=== PATIENT | female | born 1930 | race Caucasian/White ===

== ENCOUNTER → 2016-08-04 | Outpatient (CLI) | payer OTHER, MEDICARE | LOC: BMCIMAGING 14:30 | PROVIDERS: ATTEND Podiatrist Foot & Ankle Surgery | DX: M25.871 Other specified joint disorders, right ankle and foot (principal); M25.872 Other specified joint disorders, left ankle and foot; M21.41 Flat foot [pes planus] (acquired), right foot; M21.42 Flat foot [pes planus] (acquired), left foot; Z98.1 Arthrodesis status ==

== ENCOUNTER 2017-04-16 11:36 | Inpatient (IN) | payer OTHER, MEDICARE ==
--- NOTE | 2017-04-16 11:46 | EDPHY ---
H & P Time Seen by Provider: 04/16/17 11:41 HPI/ROS: CHIEF COMPLAINT: Cough, congestion, increasing weakness, fall HISTORY OF PRESENT ILLNESS: The patient is brought in by paramedics. She has a history of dementia and is a poor historian at baseline. By report the patient has had several days of increasing cough, congestion and sustained a mechanical fall today. She has a small abrasion to her left forearm. She did not strike her head or lose consciousness. The patient was noted to be tachycardic by paramedics. In the emergency department, the patient denies any active chest pain, shortness of breath, headache or neck pain. She has no acute complaints. REVIEW OF SYSTEMS: A comprehensive 10 point review of systems is otherwise negative aside from elements mentioned in the history of present illness. Source: Patient, Family Exam Limitations: Physical impairment - Personal History Tetanus Vaccine Date: < 10 - Medical/Surgical History Hx Asthma: No Hx Chronic Respiratory Disease: Yes Hx Diabetes: No Hx Cardiac Disease: Yes Hx Renal Disease: No Hx Cirrhosis: No Hx Alcoholism: No Hx HIV/AIDS: No Hx Splenectomy or Spleen Trauma: Yes Other PMH: HTN, DEMENTIA, CAD, ? A FIB, GERD - Social History Smoking Status: Former smoker - Physical Exam Exam: General Appearance: Elderly female, no acute distress Eyes: Pupils equal and round no pallor or injection ENT, Mouth: Dry mucous membranes Respiratory: There are no retractions, lungs are clear to auscultation Cardiovascular: Tachycardic Gastrointestinal: Abdomen is soft and nontender, no masses, bowel sounds normal Neurological: Alert and oriented x1, no gross motor deficit appreciated, no obvious cranial nerve deficits Skin: Superficial abrasion noted to left forearm Musculoskeletal: Neck is supple nontender Extremities: symmetrical, full range of motion Constitutional: Initial Vital Signs Temperature (C) 36.9 C 04/16/17 11:36 Heart Rate 146 H 04/16/17 11:36 Respiratory Rate 18 04/16/17 11:36 Blood Pressure 107/71 04/16/17 11:36 O2 Sat (%) 94 04/16/17 11:36 O2 Delivery Mode Room Air Allergies/Adverse Reactions: nitrofurantoin [From Macrobid] Allergy (Severe, Verified 11/27/15 11:03) PANIC ATTACK nitrofurantoin macrocrystalline [From Macrobid] Allergy (Severe, Verified 11:03) PANIC ATTACK pneumococcal vaccine [Pneumococcal Vaccine] Allergy (Severe, Verified 11/27/15 11:03) LOCAL REACTION, SWELLING Home Medications: Medication Instructions Recorded Aspirin EC [Aspirin EC 81 mg (*)] 81 mg PO DAILY 04/16/17 Atorvastatin Calcium [Lipitor 20 20 mg PO HS 04/16/17 mg (*)] Donepezil HCl [Aricept] 10 mg PO BID 04/16/17 Esomeprazole Mag Trihydrate 40 mg PO DAILY 04/16/17 [Nexium] Herbals/Supplements -Info Only 1 ea PO DAILY 04/16/17 Memantine HCl [Namenda 10 mg] 10 mg PO BID 04/16/17 Metoprolol Succinate Xr [Toprol Xl 50 mg PO HS 04/16/17 50 mg (*)] predniSONE 5 mg PO DAILY 04/16/17 Medical Decision Making - Diagnostics EKG Interpretation: EKG: Complete interpretation has been separately recorded in the [facility] archive. Summary impression: Atrial fibrillation, rate 142, no ST segment elevation or depression Imaging Results: Imaging Impressions Chest X-Ray 04/16/17 11:44 Impression: 1. Negative. No pneumonia or aspiration. 2. Chronic airways disease similar to November 2015. Chest/Thorax CTA 04/16/17 12:30 Impression: 1. No evidence of thrombopulmonary embolic disease. 2. Patchy right upper lobe pneumonia versus aspiration. 3. Upper lobe pneumonia versus aspiration. 4. Calcified coronary plaque. Findings discussed with Emergency Department physician, Dr. Ruben Moyer on April 16, [address] 04/16/17 12:31 Impression: 1. No acute intracranial hemorrhage, mass, or subdural hematoma. 2. No evidence of acute ischemia. Atrophy and white matter disease are unchanged. Findings discussed with Emergency Department physician, Dr. Ruben Moyer on April 16, 2017 at 1310 hours. ED Course/Re-evaluation: The patient presents to the ED with several complaints 1st is fever cough and congestion. The 2nd is syncope and weakness. The 3rd is tachycardia. The patient's EKG upon arrival demonstrates atrial fibrillation with rapid ventricular response. The patient received diltiazem bolus and was started on a diltiazem drip. The patient's initial chest x-ray demonstrated no obvious disease. Given her respiratory symptoms and tachycardia CT pulmonary angiogram was ordered which demonstrates no evidence of pulmonary embolism but does demonstrate the possibility of a right upper lobe pneumonia. The patient had blood cultures x2 obtained in the emergency department. Given her fall and underlying history of dementia a noncontrast head CT scan was obtained which demonstrates no evidence of intracranial hemorrhage or traumatic injury. The patient will require admission to the hospital in the setting of her atrial fibrillation with rapid ventricular response and possible pneumonia. Consultation was made with the hospitalist service. The patient will be admitted by Dr. Aceves. Differential Diagnosis: Differential diagnosis considered includes pneumonia, atrial fibrillation, heart failure, pulmonary embolism, intracranial hemorrhage, metabolic abnormality - Data Points Laboratory Results: Laboratory Results 04/16/17 12:00 04/16/17 12:00 04/16/17 04/16/17 12:00 12:00 WBC 8.81 10^3/uL 10^3/uL (3.80-9.50) RBC 5.39 10^6/uL H 10^6/uL (4.18-5.33) Hgb 15.6 g/dL g/dL (12.6-16.3) Hct 46.9 % % (38.0-47.0) MCV 87.0 fL fL (81.5-99.8) MCH 28.9 pg pg (27.9-34.1) MCHC 33.3 g/dL g/dL (32.4-36.7) RDW 14.0 % % (11.5-15.2) Plt Count 188 10^3/uL 10^3/uL (150-400) MPV 11.3 fL fL (8.7-11.7) Neut % (Auto) 81.1 % H % (39.3-74.2) Lymph % (Auto) 8.7 % L % (15.0-45.0) [place] % (Auto) 9.1 % % (4.5-13.0) Eos % (Auto) 0.1 % L % (0.6-7.6) Baso % (Auto) 0.3 % % (0.3-1.7) Nucleat RBC Rel Count 0.0 % % (0.0-0.2) Absolute Neuts (auto) 7.14 10^3/uL H 10^3/uL (1.70-6.50) Absolute Lymphs (auto) 0.77 10^3/uL L 10^3/uL (1.00-3.00) Absolute Monos (auto) 0.80 10^3/uL 10^3/uL (0.30-0.80) Absolute Eos (auto) 0.01 10^3/uL L 10^3/uL (0.03-0.40) Absolute Basos (auto) 0.03 10^3/uL 10^3/uL (0.02-0.10) Absolute Nucleated RBC 0.00 10^3/uL 10^3/uL (0-0.01) Immature Gran % 0.7 % % (0.0-1.1) Immature Gran # 0.06 10^3/uL 10^3/uL (0.00-0.10) Sodium 136 mEq/L mEq/L (134-144) Potassium 3.6 mEq/L mEq/L (3.5-5.2) Chloride 101 mEq/L mEq/L (97-110) Carbon Dioxide 23 mEq/l mEq/l (22-31) Anion Gap 12 mEq/L mEq/L (8-16) BUN 24 mg/dL H mg/dL (7-23) Creatinine 1.0 mg/dL mg/dL (0.6-1.0) Estimated GFR 53 Glucose 177 mg/dL H mg/dL (70-100) Calcium 11.2 mg/dL H mg/dL (8.5-10.4) Phosphorus 2.7 mg/dL mg/dL (2.5-4.5) Troponin I 0.153 ng/mL H ng/mL (0.000-0.034) NT-Pro-B Natriuret Pep 1540 pg/mL H pg/mL (0-450) Medications Given: Discontinued Medications Diltiazem HCl (Cardizem 25 Mg/5 Ml Vial) 10 mg IVP EDNOW ONE Stop: 04/16/17 12:32 Last Admin: 04/16/17 13:39 Dose: 10 mg Diltiazem HCl 125 mg/ Dextrose 125 mls @ 0 mls/hr IV EDNOW ONE; Titrate PRN Reason: Protocol Stop: 04/16/17 12:32 Last Admin: 04/16/17 13:41 Dose: 125 mls Departure - Departure Disposition: [facility] Acute Clinical Impression: Atrial fibrillation, Pneumonia, Generalized weakness Condition: Fair
--- NOTE | 2017-04-16 11:51 | CPEKG ---
Heart Rate: 142 RR Interval: 423 QRSD Interval: 104 QT Interval: 336 QTC Interval: 517 QRS [place]: -34 T Wave [place]: 104 EKG Severity - ABNORMAL ECG - EKG Impression: ATRIAL FIBRILLATION EKG Impression: LEFT AXIS DEVIATION EKG Impression: LVH WITH SECONDARY REPOLARIZATION ABNORMALITY Electronically Signed By: Ruben Moyer 16-Apr-2017 14:23:40
[2017-04-16 12:04] LABS: % IMMATURE GRANULYOCYTES 0.7 % (0.0-1.1); ABSOLUTE IMMATURE GRANULOCYTES 0.06 10^3/uL (0.00-0.10); ADD DIFF? NO; ADD MORPH? NO; ADD SCAN? NO; ATYPICAL LYMPHOCYTE FLAG 10 (0-99); FRAGMENT RBC FLAG 0 (0-99); HEMATOCRIT 46.9 % (38.0-47.0); HEMOGLOBIN 15.6 g/dL (12.6-16.3); LEFT SHIFT FLG 0 (0-99); LIPEMIA HEMOLYSIS FLAG 80 (0-99); MEAN CELL HEMOGLOBIN 28.9 pg (27.9-34.1); MEAN CELL HEMOGLOBIN CONCENTR. 33.3 g/dL (32.4-36.7); MEAN PLATELET VOLUME 11.3 fL (8.7-11.7); PLATELET CLUMPS FLAG 0 (0-99); PLATELET COUNT 188 10^3/uL (150-400); RED BLOOD CELL COUNT 5.39 10^6/uL (4.18-5.33)
[2017-04-16 12:15] LABS: ANION GAP 12 mEq/L (8-16); CALCIUM 11.2 mg/dL (8.5-10.4); CARBON DIOXIDE 23 mEq/l (22-31); CHLORIDE 101 mEq/L (97-110); GLOMERULAR FILTRATION RATE 53; GLUCOSE 177 mg/dL (70-100); POTASSIUM 3.6 mEq/L (3.5-5.2); SODIUM 136 mEq/L (134-144)
[2017-04-16 12:26] LABS: TROPONIN I 0.153 ng/mL (0.000-0.034)
[2017-04-16] MEDS ORDERED: DILTIAZEM 125 MG in D5W 125 ML IV ONE (12:31)
[2017-04-16] MEDS ORDERED: DILTIAZEM 25 MG/5 ML VIAL IVP ONE (12:31)
[2017-04-16] MEDS ORDERED: IOPAMIDOL (ISOVUE 370) 100 ML BTL IV ONE (12:35)
[2017-04-16] MEDS ORDERED: ACETAMINOPHEN 325 MG TAB PO PRN (13:52)
[2017-04-16] MEDS ORDERED: ONDANSETRON DISINTEGRATING 4 MG TAB PO PRN (13:52)
[2017-04-16] MEDS ORDERED: ONDANSETRON 4 MG/2 ML VIAL IVP PRN (13:52)
[2017-04-16] MEDS ORDERED: levOFLOXACIN 500 MG/DEXTROSE 100 ML IV ONE (13:58)
[2017-04-16] MEDS ORDERED: DILTIAZEM 125 MG in D5W 125 ML IV SCH (14:00)
[2017-04-16 14:12] LABS: CALCIUM 11.3 mg/dL (8.5-10.4)
[2017-04-16 14:24] LABS: PTH INTACT NO MINERALS 108.6 pg/ml (10.8-79.4)
[2017-04-16 15:04] LABS: INR 0.93 (0.83-1.16); PROTIME(PATIENT) 12.7 SEC (12.0-15.0)
[2017-04-16] MEDS: ENOXAPARIN 80 MG/0.8 ML SYR SC SCH ×2 (15:06→20:58)
[2017-04-16 15:14] LABS: PROCALCITONIN 0.52 ng/mL (0.02-0.10)
--- NOTE | 2017-04-16 15:32 | ECHO ---
[email or web address] [address] Main: [phone] Fax: Transthoracic Echocardiogram Name: VENESSA PHAN MR#: [id number] Study Date: 04/16/2017 Study Time: 02:18 PM Date of : 1930 Age: 87 year(s) Height: 160 cm (63 in.) Weight: 68.04 kg (150 lb.) BSA: 1.71 m2 Gender: Female Examination: Echo Indication: New onset Atrial Fibrillation Image Quality: Contrast: Requested by: Chrissy Aceves BP: 113 mmHg/78 mmHg Heart Rate: Rhythm: Atrial fibrillation Indication: New onset Atrial Fibrillation Procedure Staff Shed Hand: Nav Staton Reading Physician: Rocky Duron Requesting Provider: Conclusions: Asymmetrical basal LV hypertrophy. Normal global systolic LV function. No regional wall motion abnormality. Moderate LVOT obstruction. The LVOT gradient ranges from 57 mmHg to 67 mmHg with a VSM in the basilar outflow area in atrial fibrillation. Consider YONY to evaluate RA.. The right atrium is normal in size. Possible thrombus in right atrium. Trivial to mild tricuspid valve regurgitation. The pulmonary artery pressure is normal. There is no previous echocardiogram for comparison. Measurements: Chambers Valvular Assessment AV/MV Valvular Assessment TV/PV Normal Normal Normal Name Value Range Name Value Range Name Value Range Ao Latricia (MM): 2.6 cm (2.2 cm-3.7 AV Vmax: 2.59 m/s (1 m/s-1.7 TR Vmax: 2.73 mm/s ( - ) cm) m/s) TR PGmax: 30 mmHg ( - ) IVSd (2D): 0.9 cm (0.6 cm-1.1 AV maxP mmHg ( - ) syst. PAP: 35 mmHg ( - ) cm) LVOT Vmax: 2.16 m/s (0.7 m/s-1.1 PV Vmax: 1.53 m/s (0.6 m/s-0.9 LVDd (2D): 2.9 cm (3.9 cm-5.3 m/s) m/s) cm) AR (PHT): 532 ms ( - ) PV PGmax: 9 mmHg ( - ) LVDs (2D): 2.1 cm (2.1 cm-4 MV E Vmax: 1.06 m/s ( - ) cm) LVPWd (2D): 1.0 cm ( - ) LVEF (2D): 56 (>=54 %) Continued Measurements: Chambers Valvular Assessment AV/MV Valvular Assessment TV/PV Patient: VENESSA PHAN Study Date: 04/16/2017 Page 1 of 2 02:18 PM Name Value Name Value Name Value LADs Lon.6 cm MV E/E' Septal: 18.10 CVP (est.): 5 mmHg LA Area: 16.2 cm2 MV E/E' Lateral: 15.10 AR Vmax: 2.78 cm/s Findings: Left Ventricle: Normal size left ventricle. Asymmetrical basal LV hypertrophy. Normal global systolic LV function. EF is 56 %. No regional wall motion abnormality. Diastolic dysfunction is present. . Moderate LVOT obstruction. The LVOT gradient ranges from 57 mmHg to 67 mmHg with a VSM in the basilar outflow area in atrial fibrillation. Consider YONY to evaluate RA.. Right Ventricle: Normal size right ventricle. Normal RV function. Left Atrium: The left atrium is mildly dilated. Right Atrium: The right atrium is normal in size. Possible thrombus in right atrium. Mitral Valve: The mitral valve is normal in appearance and function. Mild mitral valve leaflet calcification is present. Trivial mitral valve regurgitation. Aortic Valve: The aortic valve is normal in appearance. Mild aortic valve regurgitation is present. Tricuspid Valve: The tricuspid valve appears normal. Trivial to mild tricuspid valve regurgitation. The pulmonary artery pressure is normal. Pulmonic Valve: The pulmonic valve is normal in appearance and function. Aorta: The aorta is normal. Pericardium: No pericardial effusion. (No Signature Object) Patient: VENESSA PHAN Study Date: 04/16/2017 Page 2 of 2 02:18 PM [id number]
--- NOTE | 2017-04-16 15:37 | GHP ---
[f rep st] HISTORY AND PHYSICAL DATE OF ADMISSION: 04/16/2017 CHIEF COMPLAINT: Fatigue, cough and intermittent somnolence. HISTORY OF PRESENT ILLNESS: The patient is an 87-year-old female with a history of dementia, hypertension and hyperlipidemia, who presents to the emergency department via EMS due to increasing weakness associated with a fall. Due to her dementia, she is a poor historian. Her son and djjiwqmz-ow-vws are here and report that she has had upper respiratory symptoms for the past 2 weeks, including a wet cough and congestion. She has been gradually becoming more weak and at times they find her slumped over in her chair. Today, she suffered a mechanical fall, resulting in a small abrasion of her left arm. There was no report of head injury or loss of consciousness. Upon arrival to the emergency department, patient was found to be in atrial fibrillation with rapid ventricular rate. She was given 10 mg of IV diltiazem, started on a diltiazem drip and was admitted to the hospital for further management. At this time, the patient denies headache, vision changes, chest pain, shortness of breath, abdominal symptoms or changes in her bowel or bladder habits. PAST MEDICAL HISTORY: 1. Hypertension. 2. Hyperlipidemia. 3. Basal cell carcinoma. 4. Migraine headaches. 5. Chronic hypercalcemia. 6. History of pulmonary embolism. 7. History of slightly elevated antithrombin 3. 8. Polymyalgia rheumatica. 9. Giant cell arteritis. 10. Chronic steroid use. PAST SURGICAL HISTORY: 1. Hysterectomy. 2. Left total knee arthroplasty. 3. Appendectomy. 4. Left breast biopsy. MEDICATIONS: Please see Let for completed outpatient medication list. ALLERGIES: Macrobid. SOCIAL HISTORY: The patient lives independently at the [facility]. She has dementia and is followed by Neurology. She has a distant tobacco history, is currently a nonsmoker. FAMILY HISTORY: Her sister of lung cancer. Mother and father both of heart disease. REVIEW OF SYSTEMS: A 10-point review of systems was performed and is negative except as per HPI. OBJECTIVE: VITAL SIGNS: Temperature is 36.9, blood pressure /76, heart rate on arrival 146, currently is 92, respiratory rate 16. She is 95% on room air. GENERAL: The patient is awake, alert and oriented to person only. She is in no acute distress. HEENT: Head is atraumatic, normocephalic. Pupils equal, round, react to light. Extraocular muscles intact. Oropharynx clear. Mucous members are moist. NECK: Supple. There is no JVD. HEART: Irregularly irregular with a 2/6 systolic ejection murmur heard loudest over the left sternal border. LUNGS: Clear to auscultation bilaterally. ABDOMEN: Soft, nondistended, nontender. Normoactive bowel sounds. EXTREMITIES: Without cyanosis, clubbing, or edema NEUROLOGIC: Grossly nonfocal. She moves all 4 extremities. There is no facial asymmetry. LABORATORY DATA: CBC reveals a white blood cell count of 8.8, hemoglobin 15.6, platelets 188. Basic metabolic panel shows normal electrolytes. BUN 24, creatinine 1.0, calcium is 11.2 which is down from 12.1 earlier this year. Troponins elevated at 0.153. NT-proBNP elevated at 1540. Intact PTH is 108.6. TSH is pending. Procalcitonin is pending. Chest x-ray on arrival to the emergency department shows mild diffuse peribronchial thickening. No evidence of pneumonia. Chronic airway disease is similar to that of old chest x-ray. CT pulmonary angiogram is negative for pulmonary embolism. There is patchy right upper lobe opacity which could be pneumonia, aspiration or sequela of respiratory viral infection. Calcified coronary plaque is also noted. Head CT is negative for an acute intracranial process. Atrophy and white matter disease are unchanged. EKG in the emergency department shows atrial fibrillation with rapid ventricular rate of 142 and evidence of LVH with repolarization abnormality. ASSESSMENT/PLAN: The patient is an 87-year-old female with recent upper respiratory symptoms, who presents to the emergency department with malaise, cough, fatigue, and a fall. She was admitted to hospital in rapid atrial fibrillation. 1. Atrial fibrillation with a rapid ventricular rate. It seems this is a new diagnosis. I discussed her case with her PCP. He has no record of prior atrial fibrillation, though the family seems to think that this has happened in the past. I will check a TSH and echocardiogram. There is no evidence of acute heart failure. She was given 10 mg of IV diltiazem and will continue an IV diltiazem drip. I will increase her oral metoprolol to 75 mg at bedtime in an effort for better rate control. She has a CHADS-VASc score of 7 which gives her a 12.5% annual stroke risk. Will start Lovenox and transition to orals prior to dc. I will make her n.p.o. at midnight in the event she does not convert and requires cardioversion. Cardiology consult is requested for the morning. 2. Elevated troponin. I suspect this is heart strain in the setting of rapid atrial fibrillation. The patient is chest pain free. Will continue to trend her troponin and repeat her EKG when her heart rate slows down. 3. Hypertension. She is actually a bit hypotensive on arrival. This may improve with rate control. We will continue diltiazem and metoprolol as above with close monitoring of her blood pressure. 4. Hyperlipidemia. Continue her statin. 5. Polymyalgia rheumatica. Continue her outpatient prednisone dose of 5 mg daily. 6. Alzheimer's dementia. Continue Aricept and Namenda. 7. Upper respiratory infection symptoms. She has no hypoxemia. She is not tachypneic. I note a possible right upper lobe opacity on her chest CT. She is afebrile with no leukocytosis. I will send a procalcitonin. If this is elevated, we will consider treatment for coverage of aspiration pneumonia. Also consider this may be viral and respiratory pathogen panel is sent. 8. Hypercalcemia. Her intact PTH is elevated suggesting primary hyperparathyroidism. It sounds like this is a chronic process and surgical intervention has not been pursued. Recommend continued outpatient followup as she is asymptomatic. 9. Deep venous thrombosis prophylaxis. Patient will be anticoagulated with Lovenox for now. 10. Disposition. The patient was admitted to observation. /[id number]/MODL MTDD
--- NOTE | 2017-04-16 16:19 | CPEKG ---
Heart Rate: 94 RR Interval: 638 P-R Interval: 136 QRSD Interval: 106 QT Interval: 376 QTC Interval: 471 P [place]: 78 QRS [place]: -43 T Wave [place]: 80 EKG Severity - ABNORMAL ECG - EKG Impression: SINUS RHYTHM EKG Impression: ATRIAL PREMATURE COMPLEX EKG Impression: LEFT VENTRICULAR HYPERTROPHY EKG Impression: ANTERIOR ST ELEVATION, PROBABLY DUE TO LVH Electronically Signed By: Linda Alfredo 17-Apr-2017 14:17:32
--- NOTE | 2017-04-16 16:24 | ASMTCASEMG ---
Living Arrangements What is your living Answers: Alone arrangement? Who do you live with? Type Of Residence What kind of residence do Answers: Skilled Nursing you live in? Case Management Evaluation Functional: ADL / IADL Answers: Deconditioning Performance Deficits Due to: Discharge Plan Comments Coordination Status Comments Notes: Patient normally lives at the [facility]. Needs TBD Date Signed: 04/16/2017 04:24 PM Electronically Signed By:Autumn Kendrick RN
--- NOTE | 2017-04-16 16:28 | ASMTCMCOM ---
CM Note CM Note Notes: Chart reviewed. Patient admitted through ED via EMS from the [facility]. Needs TBD at this time. CM to follow. Date Signed: 04/16/2017 04:28 PM Electronically Signed By:Autumn Kendrick RN
[2017-04-16] MEDS: AMPICILLIN/SULBACTAM 3 GM in NS 100 ML IV SCH (20:50)
[2017-04-16] MEDS: MEMANTINE HCL 5 MG TAB PO SCH (20:51)
[2017-04-16] MEDS: DONEPEZIL HCL 5 MG TAB PO SCH (20:51)
[2017-04-16] MEDS: OSELTAMIVIR PHOSPHATE 75 MG CAP PO SCH (20:58)
[2017-04-16] MEDS ORDERED: METOPROLOL SUCCINATE XR 50 MG TAB PO SCH (21:00)
[2017-04-16] MEDS ORDERED: NON-FORMULARY NEW DRUG (Donepezil Hcl [Aricept] 10 MG) PO SCH (21:00)
[2017-04-16] MEDS ORDERED: NON-FORMULARY NEW DRUG (Memantine Hcl [Namenda 10 Mg] 10 MG) PO SCH (21:00)
[2017-04-16] MEDS ORDERED: ATORVASTATIN CALCIUM 20 MG TAB PO SCH (21:00)
--- NOTE | 2017-04-16 22:38 | GCON ---
[f rep st] CONSULTATION CARDIOLOGY CONSULTATION CHIEF COMPLAINT: Shortness of breath, fatigue, cough. HISTORY OF PRESENT ILLNESS: This is an 87-year-old female with hypertension, hyperlipidemia who pres ents to [facility] with increasing weakness and secondary to nonsyncopal fall. The pat ient indicates that she has been having cough and shortness of breath over the last 2 weeks. Upon ar rival to admission, the patient was found to be in atrial fibrillation with RVR with slight elevation in troponins. There were no acute ST changes. The patient was started on IV Cardizem and currently has converted to normal sinus rhythm. Of note, the patient did have an echocardiogram today which s howed apparently normal ventricular function with a LVOT gradient secondary to septal hypertrophy. T he patient was also found to have questionable thrombus in the right atrial region. Currently, the p atgreg has been started on anticoagulation therapy. She indicates feeling much better in the last ho ur since she has converted to normal rhythm. Her heart rate is controlled at 92 and blood pressure i s 120/70. PAST MEDICAL HISTORY: History of hypertension, hyperlipidemia, dementia, history of pulmonary emboli sm. PAST SURGICAL HISTORY: Hysterectomy, left total knee arthroplasty. MEDICATIONS: Please see home medication list. ALLERGIES: Macrobid. SOCIAL HISTORY: Patient lives at [facility]. Currently has dementia and is followed by Neurology. FAMILY HISTORY: Noncontributory. REVIEW OF SYSTEMS: Patient denies any vision changes. No headache. No palpitations. No chest pain . No abdominal pain. No lower extremity pain. PHYSICAL EXAM: VITAL SIGNS: Afebrile 98.6. Blood pressure is currently 120/70 with a heart rate of 90, respirations 12, saturating 95% on room air. HEENT: Pupils equal, round, reactive to light and accommodation. Extraocular movements are intact. CARDIOVASCULAR: Regular rate and rhythm. S1, S2 . Soft systolic murmur heard best at the upper sternal border. LUNGS: Clear to auscultation bilate rally. ABDOMEN: Soft, nontender. No guarding. EXTREMITIES: No clubbing, no cyanosis. No edema. NEUROLOGICALLY: The patient is pleasant to question though slightly confused to person, place, and time. LABORATORY VALUES: Show a white count of 8.8, hemoglobin 15.6, platelets 188, creatinine 1.0, NT pro BNP 1540. Troponin of 0.153. ASSESSMENT/PLAN: Atrial fibrillation. At this time the patient is converted to normal sinus rhythm. We will continue rate control with IV Cardizem and switch over to p.o. Cardizem in the morning if b lood pressure can tolerate it. She has apparently a history of pulmonary embolism as well as questio nable thrombus in the right atrium. Given her significantly elevated CHADS-Vasc score and her episod e of paroxysmal atrial fibrillation, I feel continuing on oral anticoagulation would be the most prud ent therapy at this time. She could be converted to oral anticoagulation in the morning. No indicat ion for YONY at this time as even if she goes back into cardioversion she would not be a candidate for cardioversion if there is any thrombus present. Her elevated troponin level is most likely due to m yocardial demand with rapid ventricular response. Currently, she is chest pain-free and actually darcy te pleasant. Will continue to follow. Thank you for the consultation. /[id number]/MODL
[2017-04-17] MEDS: AMPICILLIN/SULBACTAM 3 GM in NS 100 ML IV SCH ×3 (01:42→12:32)
[2017-04-17 05:15] LABS: % IMMATURE GRANULYOCYTES 1.6 % (0.0-1.1); ADD DIFF? NO; ADD MORPH? NO; ADD SCAN? NO; ATYPICAL LYMPHOCYTE FLAG 50 (0-99); FRAGMENT RBC FLAG 0 (0-99); HEMATOCRIT 41.4 % (38.0-47.0); HEMOGLOBIN 13.7 g/dL (12.6-16.3); LEFT SHIFT FLG 10 (0-99); LIPEMIA HEMOLYSIS FLAG 80 (0-99); MEAN CELL HEMOGLOBIN 28.8 pg (27.9-34.1); MEAN CELL HEMOGLOBIN CONCENTR. 33.1 g/dL (32.4-36.7); MEAN CELL VOLUME 87.2 fL (81.5-99.8); MEAN PLATELET VOLUME 11.6 fL (8.7-11.7); PLATELET CLUMPS FLAG 20 (0-99); PLATELET COUNT 180 10^3/uL (150-400); RED BLOOD CELL COUNT 4.75 10^6/uL (4.18-5.33); RED CELL DISTRIBUTION WIDTH 13.9 % (11.5-15.2)
[2017-04-17 05:36] LABS: ANION GAP 12 mEq/L (8-16); CALCIUM 10.1 mg/dL (8.5-10.4); CARBON DIOXIDE 26 mEq/l (22-31); CHLORIDE 103 mEq/L (97-110); CREATININE 0.8 mg/dL (0.6-1.0); GLOMERULAR FILTRATION RATE > 60; GLUCOSE 76 mg/dL (70-100); POTASSIUM 3.5 mEq/L (3.5-5.2); SODIUM 141 mEq/L (134-144)
[2017-04-17] MEDS: OSELTAMIVIR PHOSPHATE 75 MG CAP PO SCH ×2 (08:12→11:09)
--- NOTE | 2017-04-17 08:41 | PDCARPN ---
Cardiology Progress Note Chief Complaint: palpitations Assessment/Plan: Assessment: AF with RVR ? RA thrombus Plan: 04/17/17 08:36 Pt is in NSR Bradycardic Stop cardizem, hold BB until HR improves ? Thrombus vs vegetation in RA: Given normal WBC count, afebrile state (blood cx pending) and history of PE, more likely thrombus. Continue on oral AC tx. Even if mass in RA appears to be another etiology, given her advanced age/ dementia very unlikely to be an open heart candidate. Would continue current therapy at this time. Can continue lower dose BB if HR is consistently >50 bpm. Subjective: no complaints Reviewed/Discussed With: other (RN) Time Spent With Patient: 25 min Objective: Vital Signs (8 Hrs) Temp Pulse Resp BP Pulse Ox 04/17/17 04:00 36.6 C 68 16 149/94 H 90 L Intake/Output (24 Hrs) 04/16/17 04/17/17 04/18/17 05:59 05:59 05:59 Intake Total 360 Balance 360 Intake: Oral (ml) 350 IV Infused (ml) 10 Other: Weight 68.039 kg 54.2 kg Intake Quantity Yes Sufficient Number of Voids 1 Toilet 2 Result Diagrams: 04/17/17 04:26 04/17/17 04:26 Cardiac Labs: Cardiac Lab Results (72 Hrs) 04/16/17 04/16/17 22:01 16:37 Troponin I 0.264 H 0.269 H - Physical Exam Constitutional: healthy appearing Eyes: PERRL Ears, Nose, Mouth, Throat: moist mucous membranes Peripheral Pulses: 1+: femoral (R), femoral (L) Respiratory: clear to auscultate bilat Gastrointestinal: normoactive bowel sounds Genitourinary: no suprapubic tenderness Skin: no rashes Musculoskeletal: no muscular tenderness Neurologic: CN II-XII grossly intact Psychiatric: cooperative Lymph, Heme, Immunologic: no lymphadenopathy ICD10 Worksheet Patient Problems: Problems Problem Status Onset Atrial fibrillation Acute Generalized weakness Acute Pneumonia Acute Shortness of breath Acute
[2017-04-17] MEDS: MEMANTINE HCL 5 MG TAB PO SCH (08:53)
[2017-04-17] MEDS: DONEPEZIL HCL 5 MG TAB PO SCH (08:53)
[2017-04-17] MEDS ORDERED: NON-FORMULARY NEW DRUG (Esomeprazole Mag Trihydrate [Nexium] 40 MG) PO SCH (09:00)
[2017-04-17] MEDS ORDERED: ASPIRIN EC 81 MG TAB PO SCH (09:00)
[2017-04-17] MEDS ORDERED: PANTOPRAZOLE SODIUM 40 MG TAB PO SCH (09:00)
[2017-04-17] MEDS ORDERED: APIXABAN 2.5 MG TAB PO SCH (09:00)
[2017-04-17] MEDS ORDERED: predniSONE 5 MG TAB PO SCH (09:00)
--- NOTE | 2017-04-17 09:12 | HOSPPROG ---
Hospitalist Progress Note Assessment/Plan: A fib with RVR - back in NSR, a bit bradycardic. Dilt d/c'd. Will resume lower dose BB only if HR >50's. Cont telemetry monitoring. Cont Eliquis for CVA prevention. Discussed with cards, appreciate assistance. Elevated troponin - likely strain in setting of rapid A fib, doubt ACS. Peaked at 0.2, trending down. Influenza A - pt's son, DPTAYE is refusing Tamiflu. Cont supportive care, droplet precautions. Hypertension - Controlled. Hyperlipidemia - Cont statin PMR - cont low dose Prednisone Alzheimer's dementia - stable, cont namenda, aricept Code status - Dispo - change to inpt Objective: Vital Signs Temp Pulse Resp BP Pulse Ox 37.2 C 53 L 14 145/64 H 91 L 04/17/17 08:35 04/17/17 08:35 04/17/17 08:35 04/17/17 08:35 04/17/17 08:35 Microbiology 04/16/17 14:30 Respiratory Panel (PCR) - Final Nasal, Sinus - [place] Viral Transport Influenza Virus Type A H3 Laboratory Results 04/17/17 04:26 04/17/17 04:26 04/16/17 04/17/17 04/18/17 05:59 05:59 05:59 Intake Total 360 Balance 360 PT 12.7 SEC (12.0-15.0) 04/16/17 12:00 INR 0.93 (0.83-1.16) 04/16/17 12:00 ICD10 Worksheet Patient Problems: Problems Problem Status Onset Atrial fibrillation Acute Generalized weakness Acute Pneumonia Acute Shortness of breath Acute
--- NOTE | 2017-04-17 09:48 | PDMN ---
Medical Necessity Medical necessity: C/M review: est. > 2 MN LOS for eval and TX of acute atrial fibrillation with rapid ventricular response, elevated troponin, influenza A requiring IV Diltiazem infusion now discontinued, ongoing cardiac monitoring, IV Unasyn, droplet precautions, upper respiratory symptom, acute inpt PT/OT, comorbid patient's son, DPOA refusing Tamiflu, hypertension, hyperlipidemia, Alzheimer's dementia, polymyalgia rheumatic treated with chronic oral prednisone per 04/17/2017 Hospitalist progress note.
--- NOTE | 2017-04-17 11:18 | ASMTCMCOM ---
CM Note CM Note Notes: Chart reviewed. Patient seen by hospitalist and is ready to transfer back to the [facility]. She is positive for influenza A and the son has informed the staff who will bring her meals to her room for now. CM available should other needs arise. Date Signed: 04/17/2017 11:18 AM Electronically Signed By:Autumn Kendrick RN
[2017-04-17 12:29] VITALS: BP 141/75; PULSE 56; RESP 12; TEMP 97.9; O2SAT 93
--- NOTE | 2017-04-17 14:47 | PDIAF ---
- Diagnosis Diagnosis: A fib - Medication Management Discharge Medications: Medications to Continue on Transfer Atorvastatin Calcium [Lipitor 20 mg (*)] 20 mg PO HS 04/16/17 [Last Taken ] Donepezil HCl [Aricept] 10 mg PO BID 04/16/17 [Last Taken 04/16/17] Esomeprazole Mag Trihydrate [Nexium] 40 mg PO DAILY 04/16/17 [Last Taken ] Herbals/Supplements -Info Only 1 ea PO DAILY 04/16/17 [Last Taken Unknown] Memantine HCl [Namenda 10 mg] 10 mg PO BID 04/16/17 [Last Taken 04/16/17] Metoprolol Succinate Xr [Toprol Xl 50 mg (*)] 50 mg PO HS 04/16/17 [Last Taken 04/15/17] predniSONE 5 mg PO DAILY 04/16/17 [Last Taken 04/16/17] Amoxicillin/Clavulanate Pot [Augmentin 875 MG TAB (*)] 875 mg PO BID #10 tab [Last Taken Unknown] Apixaban [Eliquis] 2.5 mg PO BID #60 tab 04/17/17 [Last Taken Unknown] Oseltamivir Phosphate [Tamiflu 75 mg (*)] 75 mg PO BIDMEAL #10 cap 04/17/17 [ Last Taken Unknown] Discharge Medications: Refer to the Discharge Home Medication list for PRN reason. - Orders Services needed: Home Care, Registered Nurse, Physical Therapy, Occupational Therapy Home Care Face to Face: I certify that this patient was under my care and that I had the required [id number] encounter meeting the encounter requirements on the discharge day. My findings support the fact that the patient is homebound as defined in Home Care Face to Face Continued: CMS Chapter 7 Medicare Benefits Manual 30.1.1 , The condition of the patient is such that there exists a normal inability to leave home and consequently, leaving home would require a considerable and taxing effort. Isolation Type: Droplet Isolation Diet Recommendation: no restrictions on diet Diet Texture: Regular Texture Diet, Thin Liquids, Meds Whole w/Liquids - Follow Up Care Current Providers and Referrals: Robert Sánchez MD [Primary Care Provider] - As per Instructions Oc Prieto MD [Medical Doctor] -
--- NOTE | 2017-04-17 14:51 | PDIAF ---
- Diagnosis Diagnosis: A fib, Influenza A Code Status: Do Not Resuscitate - Medication Management Discharge Medications: Medications to Continue on Transfer Atorvastatin Calcium [Lipitor 20 mg (*)] 20 mg PO HS 04/16/17 [Last Taken ] Donepezil HCl [Aricept] 10 mg PO BID 04/16/17 [Last Taken 04/16/17] Esomeprazole Mag Trihydrate [Nexium] 40 mg PO DAILY 04/16/17 [Last Taken ] Herbals/Supplements -Info Only 1 ea PO DAILY 04/16/17 [Last Taken Unknown] Memantine HCl [Namenda 10 mg] 10 mg PO BID 04/16/17 [Last Taken 04/16/17] Metoprolol Succinate Xr [Toprol Xl 50 mg (*)] 50 mg PO HS 04/16/17 [Last Taken 04/15/17] predniSONE 5 mg PO DAILY 04/16/17 [Last Taken 04/16/17] Amoxicillin/Clavulanate Pot [Augmentin 875 MG TAB (*)] 875 mg PO BID #10 tab [Last Taken Unknown] Apixaban [Eliquis] 2.5 mg PO BID #60 tab 04/17/17 [Last Taken Unknown] Oseltamivir Phosphate [Tamiflu 75 mg (*)] 75 mg PO BIDMEAL #10 cap 04/17/17 [ Last Taken Unknown] Discharge Medications: Refer to the Discharge Home Medication list for PRN reason. - Orders Services needed: Home Care, Registered Nurse, Physical Therapy, Occupational Therapy Home Care Face to Face: I certify that this patient was under my care and that I had the required [id number] encounter meeting the encounter requirements on the discharge day. My findings support the fact that the patient is homebound as defined in Home Care Face to Face Continued: CMS Chapter 7 Medicare Benefits Manual 30.1.1 , The condition of the patient is such that there exists a normal inability to leave home and consequently, leaving home would require a considerable and taxing effort. Isolation Type: Droplet Isolation Diet Recommendation: no restrictions on diet Diet Texture: Regular Texture Diet, Thin Liquids, Meds Whole w/Liquids - Follow Up Care Current Providers and Referrals: Robert Sánchez MD [Primary Care Provider] - As per Instructions Oc Prieto MD [Medical Doctor] -
--- NOTE | 2017-04-17 16:00 | ASMTCMCOM ---
CM Note CM Note Notes: Met with patient's son Jan. Initially he reported pharmacy won't cover eliquis. Given weekend discharge, provided him with card for eliquis 30 day free trial. He had no concerns at that time that he shared with case management. I received a test about 13:55 that the family requested home health PT eval. I asked the RN Bárbara to obtain order. Order noted and referrals began. [facility] accepted patient and were given information to Call son Jan Porter to facilitate time at [phone]. Orders sent via [employer]. Verbally accepted per Paul preparation supervisor canning coordinator for [facility]. Date Signed: 04/17/2017 03:59 PM Electronically Signed By:Autumn Kendrick RN
--- NOTE | 2017-04-17 16:05 | ASDISCHSUM ---
Discharge Information Plan Status:Home with Home Health Medically Cleared to Leave:04/16/2017 Discharge Date:04/17/2017 03:15 PM D/C Disposition:Home Health Service [facility] D/C Disposition:Home, Routine, Self-Care Projected Discharge Date:04/17/2017 11:00 AM Transportation at D/C:Family Discharge Delay Reason: Follow-Up Date:04/17/2017 11:00 AM Discharge Slot: Final Diagnosis: Placement Information Referral Type:*Home Health Care Services Referral ID:[id number] Provider Name:[facility] Address 1:[address] [address] Address 2: City:[place] Selection Factors: State:[place] Patient Contact Information Contact Name:KEVIN Relationship:Son Address: City:[place] Alternate Phone: State/Zip Code:[place] Email: Financial Information Financial Class: Primary Plan Desc:MEDICARE OUTPATIENT Primary Plan Number:[id number] Secondary Plan Desc:AARP/MDR SUPPLEMENT Secondary Plan Number:[id number] Assessment Information [facility] Initial CM Assessment Living Arrangements What is your living Answers: Alone arrangement? Who do you live with? Type Of Residence What kind of residence do Answers: Snf you live in? Case Management Evaluation Functional: ADL / IADL Answers: Deconditioning Performance Deficits Due to: Discharge Plan Comments Coordination Status Comments Notes: Patient normally lives at the [facility]. Needs TBD Date Signed: 04/16/2017 04:24 PM Electronically Signed By:Autumn Kendrick RN [facility] CM Progress Note CM Note CM Note Notes: Chart reviewed. Patient admitted through ED via EMS from the [facility]. Needs TBD at this time. CM to follow. Date Signed: 04/16/2017 04:28 PM Electronically Signed By:Autumn Kendrick RN [facility] CM Progress Note CM Note CM Note Notes: Chart reviewed. Patient seen by hospitalist and is ready to transfer back to the [facility]. She is positive for influenza A and the son has informed the staff who will bring her meals to her room for now. CM available should other needs arise. Date Signed: 04/17/2017 11:18 AM Electronically Signed By:Autumn Kendrick RN [facility] CM Progress Note CM Note CM Note Notes: Met with patient's son Jan. Initially he reported pharmacy won't cover eliquis. Given weekend discharge, provided him with card for eliquis 30 day free trial. He had no concerns at that time that he shared with case management. I received a test about 13:55 that the family requested home health PT eval. I asked the RN Bárbara to obtain order. Order noted and referrals began. [facility] accepted patient and were given information to Call son Jan Porter to facilitate time at [phone]. Orders sent via [email or web address]. Verbally accepted per Paul button decorating machine operator coordinator for [facility]. Date Signed: 04/17/2017 03:59 PM Electronically Signed By:Autumn Kendrick RN Intervention Information Intervention Type:*Occurence 72 Date of Service:04/16/2017 12:56 PM Patient Type:Inpatient Staff Member:CAROLINA Barnes, Social Circle Hours:0.25 Discipline: Severity:1 (0-1 Hours) Comment: Occ 72 for 04/16/2017 12:56 to 2016 09:34 as patient discharged 04/17/2017 09:3 8 9< 2 MN LOS after patient admission order changed from observation to inpatient).
[2017-04-17] MEDS ORDERED: METOPROLOL TARTRATE 50 MG TAB PO SCH (21:00)
--- NOTE | 2017-04-18 13:55 | GDS ---
[f rep st] DISCHARGE SUMMARY DISCHARGE DIAGNOSES: 1. Atrial fibrillation with rapid ventricular response. 2. Influenza A. 3. Elevated troponin likely secondary to demand ischemia in the setting of atrial fibrillation. 4. Hypertension. 5. Hyperlipidemia. 6. Alzheimer's dementia. 7. Polymyalgia rheumatica. CONSULTANTS: HISTORY OF DETAILS: Please see the history and physical dated April 16, 2017. In brief, the david ent is an 87-year-old female with a history of hypertension, hyperlipidemia, and dementia who present ed to the emergency department via EMS with weakness and a subsequent fall. She was found to be in r apid atrial fibrillation and was admitted to the hospital for further management. HOSPITAL COURSE: The patient was admitted to the progressive care unit. She was treated with IV dil tiazem for her rapid AFib and her metoprolol dose was increased from 50-75 mg the evening of admissio n. She converted back to sinus rhythm and was briefly a bit bradycardic in the 40s, though her heart rate has improved today in the 50s to 60s. She has converted back to sinus rhythm spontaneously. E chocardiogram was performed and shows a likely right atrial thrombus. She was started on Eliquis for anticoagulation. I discussed the stroke risk versus the bleeding risk with her son who is power of patent attorney and he wishes to proceed with anticoagulation, acknowledging her risk of bleeding. Cardizem was stopped and she is continued on her usual dose of metoprolol. Her history leading up to this ent was remarkable for upper respiratory symptoms with cough, congestion, weakness and fevers. A res piratory pathogen panel was performed and was positive for influenza A. Tamiflu was ordered, althoug h her son who is power of patent attorney initially refused this. It sounds like he is agreeable at the rosy e of discharge, and we discussed it may decrease viral shedding, which may be important given her sta [facility]us at the [facility] with other frail residents. The patient felt well and was evaluated by Physical T herapy and Occupational Therapy on the day of discharge. They both felt that she was back to her [facility] and deemed safe for discharge home to the [facility] with home health services. She had a CT pulmonary angiogram that was negative for PE, though somewhat concerning for a patchy ri ght upper lobe pneumonia, possibly due to aspiration. She had an elevated procalcitonin and was init ially treated with Unasyn. She remained afebrile. This was transitioned to Augmentin and she will c omplete a 1-week course of antibiotic therapy for possible aspiration pneumonia. She was evaluated b y speech therapy and was deemed safe for a regular diet with thin liquids and home medications. DISPOSITION: The patient is discharged home with home health, PT, OT and RN. We also discussed incr easing private caregivers for additional support with the son. He is given resources by our Case Man joaquin. FOLLOWUP: 1. Dr. Robert Sánchez, primary care. 2. . , cardiology. DISCHARGE MEDICATIONS: Please see [employer] for complete updated outpatient medication list. New med ications on discharge include Augmentin 875 mg p.o. b.i.d #10 no refills, Eliquis 2.5 mg p.o. ___ #60 no refills, Tamiflu 75 mg p.o. b.i.d. #10 no refills, aspirin is discontinued in favor of ant icoagulation with Eliquis. She will continue all of her outpatient medications as previously prescri bed. /[id number]/MODL
== END 2017-04-17 15:15 | disposition home health service (06) | DRG 308 ==
LOC: EDUNIT# → INTOOBSV 12:45 → F2W 15:44 → OBSVTOIN 04-17 09:34 → INTOOBSV 04-17 09:34
PROVIDERS: ADMIT Hospitalist; ATTEND Hospitalist
DX: I48.91 Unspecified atrial fibrillation (principal); J10.1 Influenza due to other identified influenza virus with other respiratory manifestations; J69.0 Pneumonitis due to inhalation of food and vomit; G30.9 Alzheimer's disease, unspecified; F02.80 Dementia in other diseases classified elsewhere, unspecified severity, without behavioral disturbance, psychotic disturbance, mood disturbance, and anxiety; M31.5 Giant cell arteritis with polymyalgia rheumatica; Z79.52 Long term (current) use of systemic steroids; Z96.652 Presence of left artificial knee joint; Z87.891 Personal history of nicotine dependence; I10 Essential (primary) hypertension; I25.10 Atherosclerotic heart disease of native coronary artery without angina pectoris; K21.9 Gastro-esophageal reflux disease without esophagitis
CPT/HCPCS: 92610-GN; 97161-GP; 97165-GO; G0378; G8978-GP-CI; G8979-GP-CI; G8980-GP-CI; G8987-GO-CI; G8988-GO-CI; G8989-GO-CI; G8996-GN-CH; G8997-GN-CH; G8998-GN-CH; J0295; J1650; J1956; Q9967

== ENCOUNTER 2017-06-04 18:15 | Observation (INO) | payer OTHER, MEDICARE ==
[2017-06-04] MEDS ORDERED: NS 500 ML IV ONE (18:19)
--- NOTE | 2017-06-04 18:23 | EDPHY ---
H & P HPI/ROS: CHIEF COMPLAINT: Found sitting on floor, chills, vomiting Limitations: dementia HISTORY OF PRESENT ILLNESS: The patient is an anticoagulated 86 y/o female arriving via EMS after she was found sitting on the floor vomiting and complaining of chills. Medical history includes dementia, hypertension, and atrial fibrillation for which she takes Xarelto. She lives at a memory care unit and was last seen normal by staff today around 14:00, about 4 hours ago. When EMS assessed her on scene, she told them she was sitting on the floor "I like it because it's flat." The fire department measured one low SpO2 reading in the 80% range on scene and EMS noted there was an O2 concentrator in the apartment that did not appear to be in use. She had a normal SpO2 on 4lpm O2 during transport. She vomited once en route here and continues to complain of chills and nausea. She denies chest pain, dyspnea, abdominal pain, extremity pain. History limited by patient's dementia. Caregiver arrives at bedside and says patient has been pale, diaphoretic, and shivering today, but was normal yesterday. Her caregiver found her on the floor next to bathroom and suspected she may have fallen. Per caregiver, pt is normally quite talkative and is much less ineractive than usual. The patient doesn't have a caregiver for a few hours in the afternoon and it's possible she was on the floor for more than 3 hours. REVIEW OF SYSTEMS: Constitutional: see HPI Eyes: No visual changes ENT: No sore throat Respiratory: No cough, no shortness of breath Cardiac: No chest pain Gastrointestinal: see HPI Genitourinary: no dysuria Musculoskeletal: No extremity pain Skin: No rash Neurological: No headache Psychiatric: No depression - Personal History Tetanus Vaccine Date: < 10 - Medical/Surgical History PMH: PMH includes: 1. Hypertension 2. Hyperlipidemia 3. GERD 4. Osteoporosis 5. Dementia 6. Atrial fibrillation - Xarelto 7. Home O2 at night 8. Basal cell carcinoma 9. Migraines 10. History of PE and slightly elevated antithrombin 3 11. Polymyalgia rheumatica 12. Chronic steroid use PSH includes: 1. Hysterectomy 2. Left total knee arthroplasty 3. Appendectomy 4. Left breast biopsy Prior medical records reviewed including admission 04/17/17 for cough and somnolence. Hx Asthma: No Hx Chronic Respiratory Disease: Yes Hx Diabetes: No Hx Cardiac Disease: Yes Hx Renal Disease: No Hx Cirrhosis: No Hx Alcoholism: No Hx HIV/AIDS: No Hx Splenectomy or Spleen Trauma: Yes Other PMH: HTN, DEMENTIA, CAD, GERD - Social History Smoking Status: Former smoker Additional Social History: Lives in memory care at the [facility]. Caregiver at bedside. PCP: Dr. Sánchez. Commercial Assistant: Dr. Brown - Physical Exam Exam: General Appearance: Alert, answers questions appropriately, poor short term memory Head: Atraumatic. No scalp swelling or tenderness Eyes: Pupils equal and round, no conjunctival pallor or injection ENT, Mouth: Mucous membranes moist Neck: Normal inspection, no midline tenderness Respiratory: no chest wall tenderness, lungs are clear to auscultation Cardiovascular: Regular rate and rhythm Gastrointestinal: Abdomen is soft and non-tender Neurological: Alert, oriented to person, follows commands, CARRILLO, gait deferred Skin: Warm and dry, no abrasions or lacerations Extremities: Nontender, no swelling Psychiatric: flat affect Constitutional: Initial Vital Signs Temperature (C) 37.3 C 06/04/17 18:15 Heart Rate 78 06/04/17 18:15 Respiratory Rate 17 06/04/17 18:15 Blood Pressure 196/89 H 06/04/17 18:15 O2 Sat (%) 97 06/04/17 18:15 O2 Delivery Mode Room Air Allergies/Adverse Reactions: nitrofurantoin [From Macrobid] Allergy (Severe, Verified 06/04/17 18:25) PANIC ATTACK nitrofurantoin macrocrystalline [From Macrobid] Allergy (Severe, Verified 18:25) PANIC ATTACK pneumococcal vaccine [Pneumococcal Vaccine] Allergy (Severe, Verified 06/04/17 18:25) LOCAL REACTION, SWELLING Home Medications: Medication Instructions Recorded Atorvastatin Calcium [Lipitor 20 20 mg PO HS 04/16/17 mg (*)] Donepezil HCl [Aricept] 10 mg PO BID 04/16/17 Esomeprazole Mag Trihydrate 40 mg PO DAILY 04/16/17 [Nexium] Herbals/Supplements -Info Only 1 ea PO DAILY 04/16/17 Memantine HCl [Namenda 10 mg] 10 mg PO BID 04/16/17 Metoprolol Succinate Xr [Toprol Xl 50 mg PO HS 04/16/17 50 mg (*)] Rivaroxaban [Xarelto 10mg (*)] 10 mg PO DAILY 06/04/17 Acetaminophen [Tylenol 325mg (*)] 650 mg PO Q6 PRN tab 06/05/17 Medical Decision Making - Diagnostics Imaging Results: Chest X-Ray 06/04/17 18:20 Impression: Negative chest. Imaging: I viewed and interpreted images myself ED Course/Re-evaluation: This is an anticoagulated 87 y/o female with dementia who presents with chills and vomiting after she was found down on the floor of her apartment. Neuro exam is nonfocal. No visible trauma on exam; no clinical suspicion of ICH/other traumatic injury. Plan for IV, labs, UA, flu swab, EKG, chest x-ray. 500mL IV NS ordered. IVF given, pt too weak to ambulate, no evidence of pneumonia, influenza swab and UA pending. Viral AGE vs other infection, will require admission b/c of weakness and advance age. Consulted with hospitalist service. Dr. So accepts admission. Differential Diagnosis: includes though not limited gastroenteritis, UTI, pneumonia, dehydration, electrolyte abnormality - Data Points Laboratory Results: Laboratory Results 06/04/17 18:30 06/04/17 18:20 Medications Given: Discontinued Medications Atorvastatin Calcium (Lipitor) 20 mg PO HS [facility] Stop: 12/01/17 20:59 Last Admin: 06/04/17 21:50 Dose: 20 mg Donepezil HCl (Aricept) 10 mg PO BID [facility] Stop: 12/01/17 20:59 Last Admin: 06/05/17 09:53 Dose: 10 mg Sodium Chloride (Ns) 500 mls @ 0 mls/hr IV EDNOW ONE; Wide Open PRN Reason: Protocol Stop: 06/04/17 18:20 Last Admin: 06/04/17 18:37 Dose: 500 mls Sodium Chloride (Ns) 1,000 mls @ 125 mls/hr IV CONT [facility] Stop: 12/01/17 20:29 Last Admin: 06/04/17 21:49 Dose: 1,000 mls Memantine (Namenda) 10 mg PO BID [facility] Stop: 12/01/17 20:59 Last Admin: 06/05/17 09:54 Dose: 10 mg Metoprolol Succinate (Toprol Xl) 50 mg PO HS [facility] Stop: 12/01/17 20:59 Last Admin: 06/04/17 21:49 Dose: 50 mg Pantoprazole Sodium (Protonix) 40 mg PO DAILY [facility] Stop: 12/02/17 08:59 Last Admin: 06/05/17 09:53 Dose: 40 mg Rivaroxaban (Xarelto) 10 mg PO DAILY [facility] Stop: 12/02/17 08:59 Last Admin: 06/05/17 09:53 Dose: 10 mg Departure - Departure Disposition: [facility] Inpatient Acute Clinical Impression: Dehydration Dementia Qualifiers: Dementia type: unspecified type Dementia behavioral disturbance: without behavioral disturbance Qualified Code(s): F03.90 - Unspecified dementia without behavioral disturbance Vomiting Qualifiers: Vomiting type: unspecified Vomiting Intractability: non-intractable Nausea presence: with nausea Qualified Code(s): R11.2 - Nausea with vomiting, unspecified Condition: Fair Report Scribed for: Gracia Spaulding Report Scribed by: Chuyita Gaston Date of Report: 06/04/17 Time of Report: 18:23 Physician Review and Approval Statement: 06/04/17 18:23 Portions of this note were transcribed by a medical technologist blood bank. I personally performed a history, physical exam, medical decision making, and confirmed accuracy of information the transcribed note.
--- NOTE | 2017-06-04 18:38 | CPEKG ---
Heart Rate: 76 RR Interval: 789 P-R Interval: 144 QRSD Interval: 106 QT Interval: 424 QTC Interval: 477 P Dunlevy: 39 QRS Dunlevy: -31 T Wave Dunlevy: 75 EKG Severity - ABNORMAL ECG - EKG Impression: SINUS RHYTHM EKG Impression: LEFT VENTRICULAR HYPERTROPHY Electronically Signed By: Gracia Spaulding 04-Jun-2017 21:42:11
[2017-06-04 18:47] LABS: PLATELET COUNT 240 10^3/uL (150-400)
[2017-06-04] MEDS ORDERED: PROMETHAZINE HCL 25 MG/ML INJ IVP PRN (20:20)
[2017-06-04] MEDS ORDERED: ACETAMINOPHEN 325 MG TAB PO PRN (20:20)
[2017-06-04] MEDS ORDERED: NS 1,000 ML IV SCH (20:30)
--- NOTE | 2017-06-04 20:52 | GHP ---
[f rep st] HISTORY AND PHYSICAL DATE OF ADMISSION: 06/04/2017 CHIEF COMPLAINT: Found down with nausea and vomiting. HISTORY OF PRESENT ILLNESS: This is an 87-year-old female with history of advanced dementia who live s at the [facility] with home care. She was found this evening on the floor vomiting. She was reported to be in her normal state of health this morning. She has a home care worker who leaves at 2 and an other who arrives at 5. Between the hours of 2-5, her symptoms must have started. In the emergency department, she continues to have bouts of nausea and vomiting. During the time of my exam, she melchor es any abdominal pain. She is a poor historian, given her dementia. PAST MEDICAL HISTORY: 1. Hypertension. 2. Hyperlipidemia. 3. Basal cell carcinoma. 4. Migraine headaches. 5. Chronic hypercalcemia. 6. History of pulmonary embolism. 7. Polymyalgia rheumatica. 8. Giant cell arteritis. 9. Chronic steroid use. 10. Hospitalization in April of 2017 for influenza A. 11. Hearing loss. PAST SURGICAL HISTORY: Hysterectomy, left total knee arthroplasty, appendectomy left breast biopsy. HOME MEDICATIONS: Reviewed. Refer to [employer] for details. ALLERGIES: Macrobid, pneumococcal vaccine. SOCIAL HISTORY: The patient is a former smoker. No history of illicit drug use. She lives at the [facility] with home care. FAMILY HISTORY: Unobtainable. REVIEW OF SYSTEMS: Comprehensive 10-point review of systems was attempted. However, it was unreliab le, given the patient's dementia as well as profound hearing loss. PHYSICAL EXAM: VITAL SIGNS: Blood pressure 196/89, pulse 78, respiratory rate 17, O2 saturation 97% on room air. Temperature afebrile. GENERAL: No acute distress. HEENT: HEAD: Normocephalic, atr aumatic. EYES: PERRLA. Sclerae anicteric. MOUTH: Moist mucous membranes. NECK: Supple. No lym phadenopathy. CARDIOVASCULAR: S1-S2. No JVD. No lower extremity edema. PULMONARY: Lungs are med ar. No wheezes, rales, or rhonchi. ABDOMEN: Soft, nontender, nondistended. No guarding or rebound tenderness. Normoactive bowel sounds. EXTREMITIES: No clubbing or cyanosis. NEURO: Cranial nerv es 2-12 grossly intact. No focal motor or sensory deficits. SKIN: Clear. No rashes. DIAGNOSTICS: WBC is 12.7, hemoglobin 14.8, hematocrit 44.8, platelets 240. Sodium 142, potassium 4. 4, chloride 102, BUN 19, creatinine 0.8, glucose 122, calcium was 11.5. Troponin was unremarkable. P TH done in April 2017 was elevated at 108.6. Serum protein electrophoresis done July 2016 was ne gative for monoclonal spike. PTH-related peptide done in [address] angio of the chest done in April 2017 was negative For malignancy. Chest x-ray done today was reviewed and visualized and it is negative for pneumonia. EKG which I visualized and personally interpreted shows sinus rhythm, rate 76 beats per minute, wit h voltage criteria for LVH. ASSESSMENT AND PLAN: This is an 87-year-old female with multiple medical problems. Presents to the hospital with: 1. Nausea, vomiting. Unclear etiology. Most likely due to acute gastroenteritis. Other etiologies include, but are less likely, appendicitis versus vomiting from her hypercalcemia versus head bleed. Plan: Currently, the patient appears to be doing better. She will be placed on observation where w e will treat her supportively with intravenous fluids and antiemetics. Given that she was found on t he floor and appears to be on Xarelto, will order a head CT to confirm there are no signs of intracra nial hemorrhage. 2. Vssvr-[id number] hypercalcemia. Most likely related to primary hyperparathyroidism and exacerbat ed by hypovolemia in the setting of nausea and vomiting. Plan: Will start intravenous fluids and re peat ionized calcium in the morning. I will defer further workup at this time. It may be reasonable to repeat a PTH-related peptide. 3. History of hypertension with signs of left ventricular hypertrophy on electrocardiogram. Plan: M onitor blood pressure and treat accordingly. 4. History of pulmonary embolism and elevated antithrombin 3 level. Plan: Once again, it appears t hat the patient is anticoagulated, which will be continued as long as there are no contraindications. 5. History of polymyalgia rheumatica/giant cell arteritis. On chronic prednisone. PLAN: Will continue home dose of steroids and consider stress-dose steroids if her nausea and vomiti ng continues or if she has any electrolyte abnormalities in the morning such as hyperkalemia. We brayan l start stress dose steroids. Sooner if she develops any hypotension. CODE STATUS: Was unable to confirm the patient's code status, but will enter of her code status as f ull for now. This will need to be confirmed with her family when available. /[id number]/MODL
[2017-06-04] MEDS ORDERED: NON-FORMULARY NEW DRUG (Donepezil Hcl [Aricept] 10 MG) PO SCH (21:00)
[2017-06-04] MEDS ORDERED: NON-FORMULARY NEW DRUG (Memantine Hcl [Namenda 10 Mg] 10 MG) PO SCH (21:00)
[2017-06-04] MEDS ORDERED: METOPROLOL SUCCINATE XR 50 MG TAB PO SCH (21:00)
[2017-06-04] MEDS ORDERED: ATORVASTATIN CALCIUM 20 MG TAB PO SCH (21:00)
[2017-06-04] MEDS: MEMANTINE HCL 5 MG TAB PO SCH (21:49)
[2017-06-04] MEDS: DONEPEZIL HCL 5 MG TAB PO SCH (21:49)
[2017-06-05 04:51] LABS: PLATELET COUNT 237 10^3/uL (150-400)
[2017-06-05 07:44] VITALS: RESP 15; TEMP 99.1; O2SAT 98
[2017-06-05] MEDS ORDERED: PANTOPRAZOLE SODIUM 40 MG TAB PO SCH (09:00)
[2017-06-05] MEDS ORDERED: RIVAROXABAN 10 MG TAB PO SCH (09:00)
[2017-06-05] MEDS ORDERED: Herbals/Supplements -Info Only PO SCH (09:00)
[2017-06-05] MEDS ORDERED: NON-FORMULARY NEW DRUG (Esomeprazole Mag Trihydrate [Nexium] 40 MG) PO SCH (09:00)
[2017-06-05] MEDS: DONEPEZIL HCL 5 MG TAB PO SCH (09:53)
[2017-06-05] MEDS: MEMANTINE HCL 5 MG TAB PO SCH (09:54)
--- NOTE | 2017-06-05 10:25 | ASMTCMCOM ---
CM Note CM Note Notes: Spoke w/TRAVELING STOREKEEPER, pt lives at the [facility] she has dementia. She will return home w/support of family and caregivers, CM available for any changes. DC Plan: Home with current support Date Signed: 06/05/2017 10:25 AM Electronically Signed By:Kaylee Segovia RN
--- NOTE | 2017-06-05 10:31 | ASMTLACE ---
LACE Length of stay for Answers: Less than 1 day current admission Acuity / Level of Answers: No Care: Did the patient have an inpatient admission? Comorbidities - select Answers: Dementia all that apply Other Score: 4 Date Signed: 06/05/2017 10:30 AM Electronically Signed By:Kaylee Segovia RN
[2017-06-05 10:50] VITALS: BP 113/59; PULSE 60
--- NOTE | 2017-06-05 14:13 | ASDISCHSUM ---
Discharge Information Plan Status:Home with No Needs Medically Cleared to Leave: Discharge Date:06/05/2017 12:06 PM CM D/C Disposition:Home, Routine, Self-Care ADT D/C Disposition:Home, Routine, Self-Care Projected Discharge Date:06/05/2017 12:06 PM Transportation at D/C:Family Discharge Delay Reason: Follow-Up Date:06/05/2017 12:06 PM Discharge Slot: Final Diagnosis: Placement Information Patient Contact Information Contact Name:KEVIN Relationship:Bonifacio Address: City:[place] Alternate Phone: State/Zip Code:[place] Email: Financial Information Financial Class: Primary Plan Desc:MEDICARE OUTPATIENT Primary Plan Number:[id number] Secondary Plan Desc:AARP/MDR SUPPLEMENT Secondary Plan Number:[id number] Assessment Information [facility] CM Progress Note CM Note CM Note Notes: Spoke w/SAMPLE SEWER, pt lives at [email or web address], she has dementia. She will return home w/support of family and caregivers, CM available for any changes. DC Plan: Home with current support Date Signed: 06/05/2017 10:25 AM Electronically Signed By:Kaylee Segovia RN LACE LACE Length of stay for Answers: Less than 1 day current admission Acuity / Level of Answers: No Care: Did the patient have an inpatient admission? Comorbidities - select Answers: Dementia all that apply Other Score: 4 Date Signed: 06/05/2017 10:30 AM Electronically Signed By:Kaylee Segovia RN Intervention Information
--- NOTE | 2017-06-05 20:30 | GDS ---
[f rep st] DISCHARGE SUMMARY DISCHARGE DIAGNOSES: 1. Nausea and vomiting. 2. Imhvl-nt-jhtayvd hypercalcemia. 3. History of pulmonary emboli. 4. Hypertension. PHYSICAL EXAM: GENERAL: The patient is alert. VITAL SIGNS: Afebrile at 37.3, pulse is 64, respira tory rate 15, blood pressure is 152/77. She is saturating greater than 90%. I have seen and evaluated the patient on the day of discharge. HOSPITAL COURSE: Ms Porter is an 87-year-old female who presented to the emergency room after having nausea and vomiting. She has been evaluated and diagnosed with: 1. Nausea and vomiting. Most likely secondary to an acute gastroenteritis. The patient's symptoms have completely resolved. She is tolerating a regular diet. She has had no complications secondary to this condition and she has returned to her baseline. 2. Mlrzg-ej-gwkrxkl hypercalcemia. This is likely exacerbated in the setting of hyperparathyroidism , as well as hypovolemia. Calcium is 10.2 today prior to disposition. 3. History of hypertension. She did have mild hypertension during this hospitalization. However, s he was unable to take some of her antihypertensive medications prior to arriving. These medications have been continued during this hospital course and her blood pressure appears to be within normal li mits. 4. History of pulmonary emboli. She is anticoagulated and will continue this at the time of disposi tion. 5. History of polymyalgia rheumatica. She will continue on her chronic prednisone. DISPOSITION: The patient will be discharged to return to her normal living environment at the [facility]. PENDING STUDIES: There are none. DISCHARGE MEDICATIONS: Please refer to EMR form. I have not adjusted the patient's previously pres ribed home medications to the best of my knowledge. FOLLOWUP: She will follow up with her primary care physician, Dr. Robert Sánchez, as needed. I reviewed the patient's disposition with her son. He is in agreement with this plan and will provid e transportation for the patient home. /[id number]/MODL
== END 2017-06-05 12:06 | disposition home or self-care (01) ==
LOC: EDUNIT# → F3E 20:25
PROVIDERS: ADMIT Family Medicine; ATTEND Family Medicine
DX: R11.2 Nausea with vomiting, unspecified (principal); E83.52 Hypercalcemia; I10 Essential (primary) hypertension; F03.90 Unspecified dementia, unspecified severity, without behavioral disturbance, psychotic disturbance, mood disturbance, and anxiety; E78.5 Hyperlipidemia, unspecified; Z86.711 Personal history of pulmonary embolism; Z85.828 Personal history of other malignant neoplasm of skin
CPT/HCPCS: 70450; 71046; 93005; G0378

== ENCOUNTER → 2017-11-25 | Outpatient (CLI) | payer OTHER, MEDICARE | LOC: BHFA 16:15 | PROVIDERS: ATTEND Internal Medicine Cardiovascular Disease | DX: I08.3 Combined rheumatic disorders of mitral, aortic and tricuspid valves (principal); I48.91 Unspecified atrial fibrillation ==

== ENCOUNTER 2018-04-26 12:07 | Observation (INO) | payer OTHER, MEDICARE ==
--- NOTE | 2018-04-26 12:23 | EDPHY ---
H & P Time Seen by Provider: 04/26/18 12:09 HPI/ROS: Chief Complaint: Syncope HPI: 88-year-old woman had 3 syncopal episodes this morning. First episode occurred with her son. Patient stood up collapsed in front of him. He is able to catch her to lower her to the ground. She had a 2nd syncopal episode while seated. EMS was called. Drain transferred in patient had a 3rd syncopal episode. EMS reports her heart rate dropped to the 40s at that time. Patient has a history dementia and does not recall the events. Denies any fevers or chills. Son is at the bedside. She did not hit her head. She is on Xarelto for a history of atrial fibrillation. History of hypertension, hypercalcemia in the past. No recent illness that he is aware of. She does live in assisted living. Currently she is without complaint. ROS: 10 systems were reviewed and were negative except those elements noted in the HPI. PMH: Dementia, Atrial fibrillation, PE, hypertension, hypercalcemia, hyperlipidemia, basal cell carcinoma, polymyalgia rheumatica, giant cell arteritis Social History: No smoking, no alcohol, no recreational drug use Family History: non-contributory Physical Exam: Gen: Awake, Alert, No Distress HEENT: Nose: no rhinorrhea Eyes: PERRLA, EOMI Mouth: Moist mucosa Neck: Supple, no JVD Chest: nontender, lungs clear to auscultation Heart: S1, S2 normal, 3 in 6 systolic murmur heard loudest at the left sternal border Abd: Soft, non-tender, no guarding Back: no CVA tenderness, no midline tenderness Ext: no edema, non-tender Skin: no rash Neuro: CN II-XII intact, Sensation grossly intact, Strength 5/5 in bilateral upper and lower extremities - Personal History Tetanus Vaccine Date: < 10 - Medical/Surgical History Hx Asthma: No Hx Chronic Respiratory Disease: Yes Hx Diabetes: No Hx Cardiac Disease: Yes Hx Renal Disease: No Hx Cirrhosis: No Hx Alcoholism: No Hx HIV/AIDS: No Hx Splenectomy or Spleen Trauma: Yes Other PMH: HTN, DEMENTIA, CAD, GERD - Social History Smoking Status: Former smoker Constitutional: Initial Vital Signs Temperature (C) 36.3 C 04/26/18 12:19 Heart Rate 70 04/26/18 12:19 Respiratory Rate 18 04/26/18 12:19 Blood Pressure 160/82 H 04/26/18 12:19 O2 Sat (%) 97 04/26/18 12:19 O2 Delivery Mode Room Air O2 (L/minute) 3 Allergies/Adverse Reactions: nitrofurantoin [From Macrobid] Allergy (Severe, Verified 06/04/17 18:25) PANIC ATTACK nitrofurantoin macrocrystalline [From Macrobid] Allergy (Severe, Verified 18:25) PANIC ATTACK pneumococcal vaccine [Pneumococcal Vaccine] Allergy (Severe, Verified 06/04/17 18:25) LOCAL REACTION, SWELLING Home Medications: Medication Instructions Recorded Atorvastatin Calcium [Lipitor 20 20 mg PO HS 04/16/17 mg (*)] Donepezil HCl [Aricept] 10 mg PO BID 04/16/17 Esomeprazole Mag Trihydrate 40 mg PO DAILY 04/16/17 [Nexium] Herbals/Supplements -Info Only 1 ea PO DAILY 04/16/17 Memantine HCl [Namenda 10 mg] 10 mg PO BID 04/16/17 Metoprolol Succinate Xr [Toprol Xl 50 mg PO HS 04/16/17 50 mg (*)] Rivaroxaban [Xarelto 10mg (*)] 10 mg PO DAILY 06/04/17 Acetaminophen [Tylenol 325mg (*)] 650 mg PO Q6 PRN tab 06/05/17 Medical Decision Making - Diagnostics EKG Interpretation: ECG time 12:14 p.m.. Sinus rhythm with a rate of 73, morphology consistent with LVH, no acute ST or T-wave changes. ED Course/Re-evaluation: 88-year-old woman with 3 syncopal events this morning. She does have a murmur consistent with a stenosis. I have not been able to get access to her prior echocardiogram results. Has a white count but no focal source of infection. Urinalysis and chest x-ray are unremarkable. She is currently without complaint. Case discussed with Dr. Jesus Coronado, hospitalist. He will admit to the PCU for further evaluation. - Data Points Laboratory Results: Laboratory Results 04/26/18 12:45 04/26/18 12:45 04/26/18 04/26/18 04/26/18 12:55 12:45 12:45 WBC 15.77 10^3/uL H 10^3/uL (3.80-9.50) RBC 4.52 10^6/uL 10^6/uL (4.18-5.33) Hgb 12.6 g/dL g/dL (12.6-16.3) Hct 40.4 % % (38.0-47.0) MCV 89.4 fL fL (81.5-99.8) MCH 27.9 pg pg (27.9-34.1) MCHC 31.2 g/dL L g/dL (32.4-36.7) RDW 13.9 % % (11.5-15.2) Plt Count 286 10^3/uL 10^3/uL (150-400) MPV 10.4 fL fL (8.7-11.7) Neut % (Auto) 87.1 % H % (39.3-74.2) Lymph % (Auto) 5.3 % L % (15.0-45.0) Banks % (Auto) 6.5 % % (4.5-13.0) Eos % (Auto) 0.3 % L % (0.6-7.6) Baso % (Auto) 0.4 % % (0.3-1.7) Nucleat RBC Rel Count 0.0 % % (0.0-0.2) Absolute Neuts (auto) 13.73 10^3/uL H 10^3/uL (1.70-6.50) Absolute Lymphs (auto) 0.84 10^3/uL L 10^3/uL (1.00-3.00) Absolute Monos (auto) 1.02 10^3/uL H 10^3/uL (0.30-0.80) Absolute Eos (auto) 0.05 10^3/uL 10^3/uL (0.03-0.40) Absolute Basos (auto) 0.06 10^3/uL 10^3/uL (0.02-0.10) Absolute Nucleated RBC 0.00 10^3/uL 10^3/uL (0-0.01) Immature Gran % 0.4 % % (0.0-1.1) Immature Gran # 0.07 10^3/uL 10^3/uL (0.00-0.10) Sodium 140 mEq/L mEq/L (135-145) Potassium 3.9 mEq/L mEq/L (3.5-5.2) Chloride 107 mEq/L mEq/L (97-110) Carbon Dioxide 27 mEq/l mEq/l (22-31) Anion Gap 6 mEq/L mEq/L (6-14) BUN 20 mg/dL mg/dL (7-23) Creatinine 0.8 mg/dL mg/dL (0.6-1.0) Estimated GFR > 60 Glucose 121 mg/dL H mg/dL (70-100) POC Glucose Calcium 10.7 mg/dL H mg/dL (8.5-10.4) Phosphorus Pending POC Troponin I Urine Color YELLOW Urine Appearance TURBID Urine pH 7.0 (5.0-7.5) Ur Specific [place] 1.012 (1.002-1.030) Urine Protein NEGATIVE (NEGATIVE) Urine Ketones NEGATIVE (NEGATIVE) Urine Blood NEGATIVE (NEGATIVE) Urine Nitrate NEGATIVE (NEGATIVE) Urine Bilirubin NEGATIVE (NEGATIVE) Urine Urobilinogen NEGATIVE EU EU (0.2-1.0) Ur Leukocyte Esterase NEGATIVE (NEGATIVE) Urine Glucose NEGATIVE (NEGATIVE) 04/26/18 04/26/18 04/26/18 12:30 12:23 12:15 WBC RBC Hgb Hct MCV MCH MCHC RDW Plt Count MPV Neut % (Auto) Lymph % (Auto) Banks % (Auto) Eos % (Auto) Baso % (Auto) Nucleat RBC Rel Count Absolute Neuts (auto) Absolute Lymphs (auto) Absolute Monos (auto) Absolute Eos (auto) Absolute Basos (auto) Absolute Nucleated RBC Immature Gran % Immature Gran # Sodium REJ Potassium TNP Chloride TNP Carbon Dioxide TNP Anion Gap TNP BUN TNP Creatinine TNP Estimated GFR TNP Glucose TNP POC Glucose 108 mg/dL H mg/dL (70-100) Calcium TNP Phosphorus POC Troponin I 0.01 ng/mL ng/mL (0.00-0.08) Urine Color Urine Appearance Urine pH Ur Specific [place] Urine Protein Urine Ketones Urine Blood Urine Nitrate Urine Bilirubin Urine Urobilinogen Ur Leukocyte Esterase Urine Glucose 04/26/18 12:15 WBC REJ RBC TNP Hgb TNP Hct TNP MCV TNP MCH TNP MCHC TNP RDW TNP Plt Count TNP MPV TNP Neut % (Auto) TNP Lymph % (Auto) TNP Banks % (Auto) TNP Eos % (Auto) TNP Baso % (Auto) TNP Nucleat RBC Rel Count TNP Absolute Neuts (auto) TNP Absolute Lymphs (auto) TNP Absolute Monos (auto) TNP Absolute Eos (auto) TNP Absolute Basos (auto) TNP Absolute Nucleated RBC TNP Immature Gran % TNP Immature Gran # TNP Sodium Potassium Chloride Carbon Dioxide Anion Gap BUN Creatinine Estimated GFR Glucose POC Glucose Calcium Phosphorus POC Troponin I Urine Color Urine Appearance Urine pH Ur Specific [place] Urine Protein Urine Ketones Urine Blood Urine Nitrate Urine Bilirubin Urine Urobilinogen Ur Leukocyte Esterase Urine Glucose Point of Care Test Results: Chemistry 04/26/18 04/26/18 12:30 12:23 POC Glucose 108 mg/dL H mg/dL (70-100) POC Troponin I 0.01 ng/mL ng/mL (0.00-0.08) Departure - Departure Disposition: [facility] Inpatient Acute Clinical Impression: Syncope Condition: Fair Referrals: Patient,NotPresent [Primary Care Provider] - As per Instructions
[2018-04-26 12:53] LABS: PLATELET COUNT 286 10^3/uL (150-400)
[2018-04-26] MEDS ORDERED: ACETAMINOPHEN 325 MG TAB PO PRN (13:49)
[2018-04-26] MEDS ORDERED: ONDANSETRON 4 MG/2 ML VIAL IVP PRN (13:49)
[2018-04-26] MEDS ORDERED: ONDANSETRON DISINTEGRATING 4 MG TAB PO PRN (13:49)
--- NOTE | 2018-04-26 14:22 | GHP ---
DATE OF ADMISSION: 04/26/2018 HISTORY OF PRESENT ILLNESS: Ms Porter is an 88-year-old female history of atrial fibrillation, as we ll as left ventricular outflow tract obstruction with a gradient about 60 mmHg 1 year ago. She does take a beta adolfo. She stood up from standing after a meal today and lost consciousness and was lo wered to the ground. She had 2 subsequent syncopal episodes. She was noted to be bradycardic in the 50s by EMS. She did receive some atropine. The patient has fairly significant dementia and impaired short-term memory, but she denies recent fev er, chills, cough, sputum, nausea, vomiting, diarrhea. Says she has been eating very well and she sa id, "Oh yes, they feed you very well at the [facility]." Her son is present at the bedside and assists in the history. She does not take diuretics. REVIEW OF SYSTEMS: Complete 10-point review of systems conducted and negative except as noted in the HPI. PAST MEDICAL HISTORY: Left ventricular outflow tract obstruction, atrial fibrillation, Alzheimer's d ementia, hyperlipidemia. ALLERGIES: Nitrofurantoin and pneumococcal vaccine. MEDICATIONS ARE: Tylenol, Lipitor, Aricept, Nexium, memantine, metoprolol, and rivaroxaban. SOCIAL HISTORY: She lives at the [facility]. They are from [place]. She is a nonsmoker, nondrinker. FAMILY HISTORY: Her parents are . PHYSICAL EXAMINATION: VITAL SIGNS: Temp 36.3, blood pressure 160/82, pulse 70, breathing 18 times a minute, 97% on room air. GENERAL: No acute distress. HEENT: Sclerae anicteric. Oropharynx clear . Mucous membranes moist. NECK: Supple. No lymphadenopathy or JVD. LUNGS: Clear to auscultation bilaterally. HEART: S1, S2. She has a holosystolic murmur heard best at the right upper sternal b order. It does increase with Valsalva movement. ABDOMEN: Soft, nontender, nondistended. EXTREMITI ES: The lower extremities show trace edema bilaterally. Calves are nontender. SKIN: Without rash. LABS: White count 15.8, hematocrit 40, platelets are 286,000. Sodium 140, potassium 3.9, chloride 1 07, bicarb 27, BUN 20, creatinine 0.8, glucose 121, calcium is 10.7 which is slightly high. Point of care troponin is normal at 0.01. Urinalysis is negative. Chest x-ray, interpreted by me, shows no acute cardiopulmonary disease. EKG, interpreted by me, shows sinus with left axis deviation, normal intervals. There are no ST or T-wave changes. I have discussed the case Dr. Sudeep Lugo, as well as Dr. Alban Galo. ASSESSMENT/PLAN: An 88-year-old female with left ventricular outflow tract obstruction with syncope. 1. Syncope. I suspect it is likely due to her orthostasis in the setting of beta-adolfo therapy an d left ventricular outflow tract obstruction. She takes 50 mg Toprol-XL for rate control for atrial fibrillation, but I think this is probably what is causing this. We will hold her beta adolfo. Obv iously, her atrial fibrillation could become an issue. 2. I have considered gastrointestinal bleed and myocardial infarction and feel these are less likely . Will repeat her hematocrit in the morning. 3. Code status is son believes that she is do not resuscitate. He is finding the paperwork and will relay that to me. 4. History of dementia. We will continue her medicines. 5. Atrial fibrillation. Continue her Xarelto. She may need alternative rate control agents. 6. Left ventricular outflow tract obstruction. The patient had echo about a month ago at [facility] Dr. Galo will get back to me with that reading. I will not repeat it at this time. DISPOSITION: Observation status. /[id number]/MODL
--- NOTE | 2018-04-26 14:35 | CPEKG ---
Test Reason : OPEN Blood Pressure : / mmHG Vent. Rate : 073 BPM Atrial Rate : 073 BPM P-R Int : 156 ms QRS Dur : 104 ms QT Int : 434 ms P-R-T Axes : 035 -28 074 degrees QTc Int : 479 ms Sinus rhythm Probable left atrial enlargement Left ventricular hypertrophy Confirmed by Randall Lugo ([id number]) on 04/26/2018 2:35:16 PM Referred By: Confirmed By:Randall Lugo
[2018-04-27 04:39] LABS: PLATELET COUNT 279 10^3/uL (150-400)
[2018-04-27] MEDS ORDERED: RIVAROXABAN 10 MG TAB PO SCH (10:45)
[2018-04-27 11:24] VITALS: BP 151/71
--- NOTE | 2018-04-27 13:58 | ASDISCHSUM ---
Discharge Information Plan Status:Home with No Needs Medically Cleared to Leave:04/26/2018 Discharge Date:04/27/2018 01:38 PM CM D/C Disposition:Home, Routine, Self-Care ADT D/C Disposition:Home, Routine, Self-Care Projected Discharge Date:04/27/2018 01:38 PM Transportation at D/C:Family Discharge Delay Reason: Follow-Up Date:04/27/2018 01:38 PM Discharge Slot: Final Diagnosis: Placement Information Patient Contact Information Contact Name:VINCENZOSYLVESTER Relationship:Bonifacio Address: City:[place] Alternate Phone: State/Zip Code:[place] Email: Financial Information Financial Class:Medicare Primary Plan Desc:MEDICARE OUTPATIENT Primary Plan Number:[id number] Secondary Plan Desc:AARP/MDR SUPPLEMENT Secondary Plan Number:[id number] Assessment Information LACE LACE Length of stay for Answers: 1 day current admission Acuity / Level of Answers: No Care: Did the patient have an inpatient admission? Comorbidities - select Answers: Any tumor (including all that apply lymphoma or leukemia) Coronary Artery Disease Dementia # of Emergency department Answers: 1-2 visits in the last 6 months Score: 9 Date Signed: 04/27/2018 01:56 PM Electronically Signed By:Marilee Peña RN Intervention Information Intervention Type:WALKER-Not Delivered Date of Service:04/27/2018 01:57 PM Patient Type:Observation Staff Member:CAROLINA Peña, Marilee Hours: Discipline: Severity: Comment:pt discharged from hospital prior to c ase management meeting with pt
--- NOTE | 2018-04-27 19:47 | GDS ---
DISCHARGE DIAGNOSES: 1. Syncope. 2. Left ventricular outflow tract obstruction. 3. Atrial fibrillation. 4. Alzheimer dementia. 5. Hyperlipidemia. CONSULTANTS: None. HISTORY OF DETAILS: Please see history and physical dated April 26, 2018. In brief, the patient is an 88-year-old female with a history of atrial fibrillation and left ventricular outflow tract obs truction, who presented to the emergency department after a syncopal episode, which occurred upon ris ing from a seated position. She has previously been on Toprol-XL 50 mg p.o. daily. EMS had noted he r to be bradycardic in the 50s upon arrival, at which point she was transferred to the emergency depa rtment. She was admitted to the hospital for further evaluation. HOSPITAL COURSE: The patient was admitted to the cardiac telemetry unit. She had no evidence of sig nificant bradycardia or sinus pauses. Her beta adolfo was held. I discussed the case with the card iologist, Sukh Vega, prior to discharge. He recommended that we decrease her Toprol-XL from 50 mg t o 25 mg, noting that she does need some beta adolfo on board given her left ventricular outflow trac t obstruction. We acknowledge of the risk of hemodynamic changes given her outflow tract obstruction . She is not a surgical candidate at this point. The plan is to have her take a lower dose of Topro l-XL and follow up with her primary pharmaceutical process engineer, Dr. Prieto. She is likely a candidate for an outp atient Holter monitor to continue to search for symptomatic bradycardia or sinus pauses in the settin g of her beta adolfo therapy. We discussed the risks and benefits of her treatment options with her son, and he agrees to the above plan. DISPOSITION: The patient is discharged home in stable condition. FOLLOWUP: Oc Prieto MD, Cardiology. DISCHARGE MEDICATIONS: Please see [facility] completed outpatient medication list. Changed medication s at discharge: Toprol-XL is decreased from 50 mg p.o. daily to 25 mg p.o. daily. She will continue all other outpatient medications as previously prescribed including atorvastatin 20 mg p.o. at [facility], Aricept 10 mg p.o. twice daily, Nexium 40 mg p.o. daily, Namenda 10 mg p.o. twice daily, and Xare lto 10 mg p.o. daily. /[id number]/MODL
[2018-04-27] MEDS ORDERED: ATORVASTATIN CALCIUM 20 MG TAB PO SCH (21:00)
[2018-04-27] MEDS ORDERED: DONEPEZIL HCL 5 MG TAB PO SCH (21:00)
[2018-04-27] MEDS ORDERED: MEMANTINE HCL 5 MG TAB PO SCH (21:00)
[2018-04-28] MEDS ORDERED: PANTOPRAZOLE SODIUM 40 MG TAB PO SCH (09:00)
== END 2018-04-27 13:38 | disposition home or self-care (01) ==
LOC: EDUNIT# → F2W 14:17
PROVIDERS: ADMIT Internal Medicine; ATTEND Hospitalist
DX: R55 Syncope and collapse (principal); R00.1 Bradycardia, unspecified; I48.91 Unspecified atrial fibrillation; G30.9 Alzheimer's disease, unspecified; F02.80 Dementia in other diseases classified elsewhere, unspecified severity, without behavioral disturbance, psychotic disturbance, mood disturbance, and anxiety; I10 Essential (primary) hypertension; E78.5 Hyperlipidemia, unspecified; M31.5 Giant cell arteritis with polymyalgia rheumatica; Z79.01 Long term (current) use of anticoagulants; Z86.711 Personal history of pulmonary embolism
CPT/HCPCS: 71046; 93005; 97165; 99285; G0378; G8987; G8988; 84484-ER

== ENCOUNTER 2018-05-02 12:24 | Emergency (ER) | payer OTHER, MEDICARE ==
--- NOTE | 2018-05-02 13:01 | EDPHY ---
H & P Stated Complaint: " shaking." Time Seen by Provider: 05/02/18 12:58 HPI/ROS: HPI: This is a 88-year-old female who presents with Chief Complaint: "shaking" Location:body Quality: Shaking Duration: 1-3 hours prior to arrival Signs and Symptoms: no shortness of breath at rest, no shortness of breath on exertion, no cough, no chest pain, no palpitations, no lower extremity edema, no wheezing, no orthopnea, no paroxysmal nocturnal dyspnea, no fever, no injury/ trauma, no hemoptysis, no carpal pedal spasms Timing: Acute, Waxes and wane Severity: [id number] Context: Patient has a history of syncope, atrial fibrillation, Alzheimer dementia, presents accompanied by her son who is been driving her to doctor's appointments this morning including the buggy operator to have a Holter monitor placed. Upon arrival back to [facility], nursing noted that patient was more lethargic than normal this morning as well as had "some shaking." Patient has dementia and history is limited. Son reports that she did eat breakfast this morning without difficulty. Patient does take Xarelto. no falls/trauma. Denies fever, vomiting, diarrhea. Modifying Factors: None Comment: ROS: A comprehensive 10 system review of systems is otherwise negative aside from elements mentioned in the history of present illness. MEDICAL/SURGICAL/SOCIAL HISTORY: Medical history: HTN, DEMENTIA, afib, left ventricular outflow tract obstruction, Hyperlipidemia Surgical history: Denies Social history: Resident of [employer]. Retired. Nonsmoker. CONSTITUTIONAL: Elderly nontoxic-appearing, interactive, elderly white female awake and alert, no obvious distress HEENT: Atraumatic and normocephalic, PERRL, EOMI. Nares patent; no rhinorrhea; no nasal mucosal edema. Tympanic membranes clear. Oropharynx clear, no exudate and moist pink mucosa. Airway patent. No lymphadenopathy. No meningismus. Cardiovascular: Normal S1/S2, irregular rate, regular rhythm, without murmur rub or gallop. PULMONARY/CHEST: Symmetrical and nontender. Clear to auscultation bilaterally. Good air movement. No accessory muscle usage. ABDOMEN: Soft, nondistended, nontender, no rebound, no guarding, no peritoneal signs, no masses or organomegaly. No CVAT. EXTREMITIES: 2/2 pulses, strength 5/5, no deformities, no clubbing, no cyanosis or edema. NEUROLOGICAL: no focal neuro deficits. GCS 15. SKIN: Warm and dry, pallor, no erythema. no rash. Good capillary refill. Source: Patient, Family, Old records Exam Limitations: Clinical condition - Personal History Tetanus Vaccine Date: < 10 - Medical/Surgical History Hx Asthma: No Hx Chronic Respiratory Disease: Yes Hx Diabetes: No Hx Cardiac Disease: Yes Hx Renal Disease: No Hx Cirrhosis: No Hx Alcoholism: No Hx HIV/AIDS: No Hx Splenectomy or Spleen Trauma: Yes Other PMH: HTN, DEMENTIA, afib, left ventricular outflow tract obstruction, Hyperlipidemia, - Social History Smoking Status: Former smoker Constitutional: Initial Vital Signs Temperature (C) 36.7 C 05/02/18 12:28 Heart Rate 57 L 05/02/18 12:28 Respiratory Rate 18 05/02/18 12:28 Blood Pressure 182/84 H 05/02/18 12:28 O2 Sat (%) 94 05/02/18 12:28 O2 Delivery Mode Room Air Allergies/Adverse Reactions: nitrofurantoin [From Macrobid] Allergy (Severe, Verified 06/04/17 18:25) PANIC ATTACK nitrofurantoin macrocrystalline [From Macrobid] Allergy (Severe, Verified 18:25) PANIC ATTACK pneumococcal vaccine [Pneumococcal Vaccine] Allergy (Severe, Verified 06/04/17 18:25) LOCAL REACTION, SWELLING Home Medications: Medication Instructions Recorded Atorvastatin Calcium [Lipitor 20 20 mg PO HS 04/16/17 mg (*)] Donepezil HCl [Aricept] 10 mg PO BID 04/16/17 Esomeprazole Mag Trihydrate 40 mg PO DAILY 04/16/17 [Nexium] Herbals/Supplements -Info Only 1 ea PO DAILY 04/16/17 Memantine HCl [Namenda 10 mg] 10 mg PO BID 04/16/17 Rivaroxaban [Xarelto 10mg (*)] 10 mg PO DAILY 06/04/17 Metoprolol Succinate Xr [Toprol Xl 25 mg PO DAILY #30 tab.sr 04/27/18 25 mg (*)] Cefuroxime Axetil [Ceftin (*)] 250 mg PO BID 7 Days tab 05/02/18 Medical Decision Making ED Course/Re-evaluation: Vital signs reviewed and stable upon arrival. Placed on cardiac monitor technician. EKG my read shows normal sinus rhythm with a rate of 61 beats per minute, LVH IV access and laboratory studies along with urinalysis ordered Given 500 cc normal saline 1400: Urinalysis shows infection, sent for urine culture, IV Rocephin 1 g given Labs reviewed. WBC 11 K. Creatinine 0.8. 1410: Notified by [employer] that troponin 0.01 Patient does not have any signs of sepsis, lives at the [facility] and has close follow-up, appropriate to treat outpatient Prescription for Ceftin x7 days written This patient was seen under the supervision of my secondary supervising physician. I evaluated care for this patient independently. Discussed this patient with Dr. Hernandez who did not see the patient. Differential Diagnosis: Weakness including but not limited to electrolyte abnormality, depression, anxiety, CVA, spinal cord abnormality, and infectious causes. - Data Points Laboratory Results: Laboratory Results 05/02/18 13:25 05/02/18 13:25 05/02/18 05/02/18 05/02/18 13:29 13:25 13:25 WBC 11.30 10^3/uL H 10^3/uL (3.80-9.50) RBC 4.91 10^6/uL 10^6/uL (4.18-5.33) Hgb 13.7 g/dL g/dL (12.6-16.3) Hct 44.4 % % (38.0-47.0) MCV 90.4 fL fL (81.5-99.8) MCH 27.9 pg pg (27.9-34.1) MCHC 30.9 g/dL L g/dL (32.4-36.7) RDW 13.7 % % (11.5-15.2) Plt Count 236 10^3/uL 10^3/uL (150-400) MPV 10.9 fL fL (8.7-11.7) Neut % (Auto) 85.8 % H % (39.3-74.2) Lymph % (Auto) 4.2 % L % (15.0-45.0) [place] % (Auto) 8.9 % % (4.5-13.0) Eos % (Auto) 0.3 % L % (0.6-7.6) Baso % (Auto) 0.4 % % (0.3-1.7) Nucleat RBC Rel Count 0.0 % % (0.0-0.2) Absolute Neuts (auto) 9.70 10^3/uL H 10^3/uL (1.70-6.50) Absolute Lymphs (auto) 0.47 10^3/uL L 10^3/uL (1.00-3.00) Absolute Monos (auto) 1.01 10^3/uL H 10^3/uL (0.30-0.80) Absolute Eos (auto) 0.03 10^3/uL 10^3/uL (0.03-0.40) Absolute Basos (auto) 0.05 10^3/uL 10^3/uL (0.02-0.10) Absolute Nucleated RBC 0.00 10^3/uL 10^3/uL (0-0.01) Immature Gran % 0.4 % % (0.0-1.1) Immature Gran # 0.05 10^3/uL 10^3/uL (0.00-0.10) RBC/WBC/PLT Morphology TNP Platelet Estimate ADEQUATE (ADEQ) Sodium 137 mEq/L mEq/L (135-145) Potassium 3.8 mEq/L mEq/L (3.5-5.2) Chloride 104 mEq/L mEq/L (97-110) Carbon Dioxide 26 mEq/l mEq/l (22-31) Anion Gap 7 mEq/L mEq/L (6-14) BUN 23 mg/dL mg/dL (7-23) Creatinine 0.8 mg/dL mg/dL (0.6-1.0) Estimated GFR > 60 Glucose 147 mg/dL H mg/dL (70-100) Calcium 11.1 mg/dL H mg/dL (8.5-10.4) Phosphorus 3.0 mg/dL mg/dL (2.5-4.5) POC Troponin I 0.01 ng/mL ng/mL (0.00-0.08) Urine Color Urine Appearance Urine pH Ur Specific [place] Urine Protein Urine Ketones Urine Blood Urine Nitrate Urine Bilirubin Urine Urobilinogen Ur Leukocyte Esterase Urine RBC Urine WBC Ur Epithelial Cells Urine Bacteria Urine Glucose 05/02/18 13:20 WBC RBC Hgb Hct MCV MCH MCHC RDW Plt Count MPV Neut % (Auto) Lymph % (Auto) [place] % (Auto) Eos % (Auto) Baso % (Auto) Nucleat RBC Rel Count Absolute Neuts (auto) Absolute Lymphs (auto) Absolute Monos (auto) Absolute Eos (auto) Absolute Basos (auto) Absolute Nucleated RBC Immature Gran % Immature Gran # RBC/WBC/PLT Morphology Platelet Estimate Sodium Potassium Chloride Carbon Dioxide Anion Gap BUN Creatinine Estimated GFR Glucose Calcium Phosphorus POC Troponin I Urine Color YELLOW Urine Appearance MODERATELY TURBID Urine pH 5.0 (5.0-7.5) Ur Specific [place] 1.014 (1.002-1.030) Urine Protein 2+ H (NEGATIVE) Urine Ketones NEGATIVE (NEGATIVE) Urine Blood 2+ H (NEGATIVE) Urine Nitrate NEGATIVE (NEGATIVE) Urine Bilirubin NEGATIVE (NEGATIVE) Urine Urobilinogen NEGATIVE EU EU (0.2-1.0) Ur Leukocyte Esterase 3+ H (NEGATIVE) Urine RBC 50-182 /hpf H /hpf (0-3) Urine WBC 50-182 /hpf H /hpf (0-3) Ur Epithelial Cells TRACE /lpf /lpf (NONE-1+) Urine Bacteria 3+ /hpf H /hpf (NONE SEEN) Urine Glucose NEGATIVE (NEGATIVE) Medications Given: Discontinued Medications Sodium Chloride (Ns) 500 mls @ 0 mls/hr IV EDNOW ONE; Wide Open PRN Reason: Protocol Stop: 05/02/18 13:08 Last Admin: 05/02/18 13:29 Dose: 500 mls Ceftriaxone Sodium/Dextrose (Rocephin 1 Gm (Premix)) 50 mls @ 100 mls/hr IV EDNOW ONE PRN Reason: Protocol Stop: 05/02/18 14:30 Last Admin: 05/02/18 14:05 Dose: 50 mls Point of Care Test Results: Chemistry 05/02/18 13:29 POC Troponin I 0.01 ng/mL ng/mL (0.00-0.08) Departure - Departure Disposition: Home, Routine, Self-Care Clinical Impression: Acute cystitis Qualifiers: Hematuria presence: without hematuria Qualified Code(s): N30.00 - Acute cystitis without hematuria Condition: Good Instructions: Urinary Tract Infection in Women (ED) Additional Instructions: Consume a minimum of 8-10 glasses of water or electrolyte fluid replacement drinks that include Gatorade, Powerade, Pedialyte. Take antibiotic as directed. Start taking the antibiotic tomorrow morning. Do not skip a dose. If symptoms do not improve over the next 2-3 days, follow-up with primary care provider. Return at once for any worsening symptoms or concerns. Referrals: Robert Sánchez MD [Primary Care Provider] - As per Instructions Prescriptions: Cefuroxime Axetil [Ceftin (*)] 250 mg PO BID 7 Days tab
[2018-05-02] MEDS ORDERED: NS 500 ML IV ONE (13:07)
[2018-05-02 13:44] LABS: PLATELET COUNT 236 10^3/uL (150-400)
[2018-05-02 14:50] VITALS: BP 169/79
--- NOTE | 2018-05-05 10:52 | CPEKG ---
Test Reason : OPEN Blood Pressure : / mmHG Vent. Rate : 061 BPM Atrial Rate : 061 BPM P-R Int : 156 ms QRS Dur : 100 ms QT Int : 437 ms P-R-T Axes : -06 -27 051 degrees QTc Int : 441 ms Sinus rhythm Left ventricular hypertrophy Anterior Q waves, possibly due to LVH Confirmed by Gracia Spaulding ([id number]) on 05/05/2018 10:51:26 AM Referred By: Confirmed By:Gracia Spaulding
== END 2018-05-02 14:46 | disposition home or self-care (01) ==
LOC: EDUNIT#
DX: N30.00 Acute cystitis without hematuria (principal); E86.9 Volume depletion, unspecified
CPT/HCPCS: 93005; 93225; 93226; 96361; 96365; 99284; J0696; 84484-PO